=== PATIENT | male | born 1940 | race African-American/Black ===

== ENCOUNTER 2016-11-18 09:31 | Emergency (ER) | payer MEDICARE ==
[~2016-11-18] VITALS: Ht 175.3 cm; Wt 95.3 kg
[~2016-11-18 09:31] MED LIST: CLON0.1T PO; LATA2.5D2 OP; PRED5TAB PO; TERA5CAP3 PO
--- NOTE | 2016-11-18 10:40 | PHYS DOC ---
Past Medical History Past Medical History: Bronchitis, Hypertension, Other Additional Past Medical Histor: prostate cancer hx Past Surgical History: Other Additional Past Surgical Histo: hernia Alcohol Use: None Drug Use: None Adult General Chief Complaint Chief Complaint: SHORTNESS OF BREATH [facility] HPI Patient is a 76 year old male who presents with complaint of shortness of breath. Patient states that he was sent to the emergency department from his primary doctor's office due to problems with worsening shortness of breath with exertion. Patient states that he has had problems over the past 3 days. The patient states that he thinks it is due to a medication that he is taking for his prostate. The patient is a poor historian. The patient states that he had history of prostate cancer but states that it resolved. Patient states however that he is currently taking a medication for his prostate. Patient is unsure if he has had recurrence of his prostate cancer. Patient states that he is currently taking Xtandi. Patient denies any history of heart or lung problems. Patient states since taking this medication he has felt weaker and has been having dyspnea on exertion. Per report, the patient was noted to be at his primary physician's office and was sent to the emergency department due to low blood pressure. Patient's current blood pressure is 100/50. Patient denies any fevers, cough, chills, abdominal pain. Patient states that he has had decreased appetite since taking his medication and has not been eating or drinking well. Patient denies orthopnea or chest pain. Review of Systems Review of Systems Constitutional: Denies fever or chills [] Eyes: Denies change in visual acuity, redness, or eye pain [] HENT: Denies nasal congestion or sore throat [] Respiratory: Denies cough or shortness of breath [] Cardiovascular: No additional information not addressed in HPI [] GI: Denies abdominal pain, nausea, vomiting, bloody stools or diarrhea [] : Denies dysuria or hematuria [] Musculoskeletal: Denies back pain or joint pain [] Integument: Denies rash or skin lesions [] Neurologic: Denies headache, focal weakness or sensory changes [] Endocrine: Denies polyuria or polydipsia [] Current Medications Current Medications Current Medications Medications (Trade) Dose Ordered Sig/Marie Start Time Stop Time Status Last Admin Dose Admin Sodium Chloride (Iv Sodium Chloride 0.9% 1000ml Bag) 1,000 ml @ 1,000 mls/hr Q1H 11/18/16 11:00 11/18/16 11:59 DC 11/18/16 11:13 1,000 MLS/HR Allergies Allergies Allergies Coded Allergies Type Severity Reaction Last Updated Verified No Known Drug Allergies 03/12/16 No Physical Exam Physical Exam Constitutional: Alert, afebrile, no acute distress. [] HENT: Normocephalic, atraumatic, bilateral external ears normal, oropharynx moist, no oral exudates, nose normal. [] Eyes: PERRLA, EOMI, conjunctiva normal, no discharge. [] Neck: Normal range of motion, no tenderness, supple, no stridor. [] Cardiovascular:Heart rate regular rhythm, no murmur [] Lungs & Thorax: Bilateral breath sounds clear to auscultation [] Abdomen: Bowel sounds normal, soft, no tenderness, no masses, no pulsatile masses. [] Skin: Warm, dry, no erythema, no rash. [] Back: No tenderness, no CVA tenderness. [] Extremities: No tenderness, no cyanosis, no clubbing, ROM intact, trace pedal edema bilaterally. [] Neurologic: Alert and oriented X 3, normal motor function, normal sensory function, no focal deficits noted. [] Current Patient Data Vital Signs Vital Signs Date Time Temp Pulse Resp B/P Pulse Ox O2 Delivery O2 Flow Rate FiO2 11/18/16 13:30 74 22 117/66 96 Room Air 11/18/16 10:00 98.4 98.4 Lab Values Laboratory Tests Test 11/18/16 11:08 11/18/16 13:16 White Blood Count 6.9x10^3/uL (4.0-11.0) Red Blood Count 4.16x10^6/uL (4.30-5.70) L Hemoglobin 11.5g/dL (13.0-17.5) L Hematocrit 35.0% (39.0-53.0) L Mean Corpuscular Volume 84fL (79-100) Mean Corpuscular Hemoglobin 28pg (25-35) Mean Corpuscular Hemoglobin Concent 33g/dL (31-37) Red Cell Distribution Width 13.7% (11.5-14.5) Platelet Count 207x10^3/uL (140-400) Neutrophils (%) (Auto) 67% (31-73) Lymphocytes (%) (Auto) 13% (24-48) L Monocytes (%) (Auto) 14% (0-9) H Eosinophils (%) (Auto) 5% (0-3) H Basophils (%) (Auto) 1% (0-3) Neutrophils # (Auto) 4.7x10^3uL (1.8-7.7) Lymphocytes # (Auto) 0.9x10^3/uL (1.0-4.8) L Monocytes # (Auto) 1.0x10^3/uL (0.0-1.1) Eosinophils # (Auto) 0.4x10^3/uL (0.0-0.7) Basophils # (Auto) 0.0x10^3/uL (0.0-0.2) Sodium Level 141mmol/L (136-145) Potassium Level 4.0mmol/L (3.5-5.1) Chloride Level 107mmol/L (98-107) Carbon Dioxide Level 26mmol/L (21-32) Anion Gap 8 (6-14) Blood Urea Nitrogen 24mg/dL (8-26) Creatinine 1.8mg/dL (0.7-1.3) H Estimated GFR (Cockcroft-Gault) 44.5 Glucose Level 109mg/dL (70-99) H Calcium Level 7.7mg/dL (8.5-10.1) L Magnesium Level 2.4mg/dL (1.8-2.4) Total Bilirubin 0.5mg/dL (0.2-1.0) Direct Bilirubin 0.1mg/dL (0.0-0.2) Aspartate Amino Transferase (AST) 23U/L (15-37) Alanine Aminotransferase (ALT) 20U/L (16-63) Alkaline Phosphatase 67U/L (46-116) Creatine Kinase 261U/L (39-308) Creatine Kinase MB (Mass) 1.2ng/mL (0.0-3.6) Creatine Kinase MB Relative Index 0.5% (0-4) Troponin I Quantitative < 0.017ng/mL (0.000-0.055) GZ-Zcv-F-Type Natriuretic Peptide 71pg/mL (0-449) Total Protein 6.5g/dL (6.4-8.2) Albumin 2.6g/dL (3.4-5.0) L Urine Collection Type Unknown Urine Color Yellow Urine Clarity Clear Urine pH 6.0 Urine Specific [place] 1.015 Urine Protein Negativemg/dL (NEG-TRACE) Urine Glucose (UA) Negativemg/dL (NEG) Urine Ketones (Stick) Tracemg/dL (NEG) Urine Blood Trace (NEG) Urine Nitrite Negative (NEG) Urine Bilirubin Negative (NEG) Urine Urobilinogen Dipstick 0.2mg/dL (0.2 mg/dL) Urine Leukocyte Esterase Moderate (NEG) Urine RBC Rare/HPF (0-2) Urine WBC 11-20/HPF (0-4) Urine Squamous Epithelial Cells Occ/LPF Urine Bacteria Few/HPF (0-FEW) Urine Hyaline Casts Occasional/HPF Laboratory Tests 11/18/16 11:08 Laboratory Tests 11/18/16 11:08 EKG EKG Interpreted by me: Heart rate 80, sinus rhythm, normal intervals, left axis deviation, no acute ST/T-wave abnormalities present [] Radiology/Procedures Radiology/Procedures [facility] [address] [place] [address] IMAGING REPORT Signed PATIENT: LEONA BALTAZAR ACCOUNT: [id number] : 1940 LOCATION: ER AGE: 76 SEX: M EXAM STATUS: REG ER ORD. PHYSICIAN: KOSTA TY MD REASON: shortness of breath PROCEDURE: PORTABLE CHEST 1V Indication: Shortness of breath. Time of exam 10:51 AM Correlation is made with prior chest from 08/27/2016. The heart size is stable. The lungs appear to be clear. There is slight blunting of the costophrenic angles. Minimal pleural fluid cannot be entirely excluded. There is no pneumothorax. Impression: Questionable minimal pleural fluid. No infiltrate is detected. DICTATED and SIGNED BY: JANET WILLAMS MD DATE: 11/18/16 1100 CC: KOSTA TY MD; NON,STAFF ~ [] Course & Med Decision Making Course & Med Decision Making Pertinent Labs and Imaging studies reviewed. (See chart for details) Patient was given IV fluids in the emergency department. The patient states he feels better at this time. The patient is likely experiencing dehydration secondary to poor oral intake from his chemotherapy medication. The patient was prescribed Zofran and recommended to increase fluid intake. Advised follow-up in 3 days with primary doctor and return to emergency department for any worsening symptoms. Patient voiced understanding and in agreement with treatment plan. Dragon Disclaimer Dragon Disclaimer This electronic medical record was generated, in whole or in part, using a voice recognition dictation system. Departure Departure Impression: Primary Impression: Dehydration Additional Impression: Prostate cancer Disposition: HOME, SELF-CARE Condition: IMPROVED Referrals: UNKNOWN PCP NAME (PCP) Patient Instructions: Dehydration, Adult Additional Instructions: Your symptoms appear to be due to poor eating and drinking causing dehydration. This is likely due to the your prostate medication and it is expected that this will improve over the next few days. It is recommended that you follow-up with your primary doctor in the next 3-4 days. You have been prescribed Zofran which will help with nausea and hopefully help improve your appetite. Return to the emergency department for any worsening symptoms. Scripts Ondansetron (Zofran Odt)4 Mg Tab.rapdis4 Mg PO Q8HRS PRN NAUSEA/VOMITING #20 TAB Prov:KOSTA TY MD 11/18/16 Problem Qualifiers KOSTA TY MD Nov 18, 2016 10:40
--- NOTE | 2016-11-18 10:45 | EKG ---
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
[2016-11-18] MEDS ORDERED: IV NORMAL SALINE 1000ML BAG 1,000 ML IV SCH (11:00)
--- NOTE | 2016-11-18 11:04 | RAD ---
Indication: Shortness of breath. Time of exam 10:51 AM Correlation is made with prior chest from 08/27/2016. The heart size is stable. The lungs appear to be clear. There is slight blunting of the costophrenic angles. Minimal pleural fluid cannot be entirely excluded. There is no pneumothorax. Impression: Questionable minimal pleural fluid. No infiltrate is detected.
[2016-11-18 11:29] LABS: BASO % 1 % (0-3); EOS % 5 % (0-3); HEMOGLOBIN 11.5 g/dL (13.0-17.5); LYMPH # 0.9 x10^3/uL (1.0-4.8); LYMPH % 13 % (24-48); MEAN CORPUSCULAR HEMOGLOBIN 28 pg (25-35); MEAN CORPUSCULAR HGB CONC 33 g/dL (31-37); MEAN CORPUSCULAR VOLUME 84 fL (79-100); MONO % 14 % (0-9); NEUT % 67 % (31-73); PLATELET COUNT 207 x10^3/uL (140-400); RED BLOOD COUNT 4.16 x10^6/uL (4.30-5.70); RED CELL DISTRIBUTION WIDTH 13.7 % (11.5-14.5); WHITE BLOOD COUNT 6.9 x10^3/uL (4.0-11.0)
[2016-11-18 11:42] LABS: CALCIUM 7.7 mg/dL (8.5-10.1); CREATININE 1.8 mg/dL (0.7-1.3); GFR 44.5
[2016-11-18 11:47] LABS: ALBUMIN 2.6 g/dL (3.4-5.0); DIRECT BILIRUBIN 0.1 mg/dL (0.0-0.2); MAGNESIUM 2.4 mg/dL (1.8-2.4); TOTAL BILIRUBIN 0.5 mg/dL (0.2-1.0); TOTAL PROTEIN 6.5 g/dL (6.4-8.2)
[2016-11-18 11:54] LABS: CKMB INDEX 0.5 % (0-4); CKMB MASS 1.2 ng/mL (0.0-3.6)
[2016-11-18 13:27] LABS: BILIRUBIN,URINE NEGATIVE (NEG); GLUCOSE,URINE NEGATIVE (NEG); NITRITE,URINE NEGATIVE (NEG); UROBILINOGEN,URINE 0.2 mg/dL (0.2 mg/dL)
[2016-11-18 13:30] VITALS: BP 117/66
[2016-11-18] MEDS ORDERED: ONDA4TAB10 PO (13:31)
[2016-11-18 13:49] LABS: BACTERIA,URINE FEW /HPF (0-FEW); PROTEIN,URINE NEGATIVE (NEG-TRACE); RBC,URINE RARE /HPF (0-2); SQUAMOUS EPITHELIAL CELL,UR OCC /LPF
== END 2016-11-18 13:57 | disposition home or self-care (01) ==
LOC: ER 09:31
DX: C61 Malignant neoplasm of prostate (principal); E86.0 Dehydration; R06.02 Shortness of breath; I10 Essential (primary) hypertension; Z98.890 Other specified postprocedural states
CPT/HCPCS: 36415; 71010; 80048; 80076; 81001; 82553; 83735; 83880; 84484; 85027; 87086; 93005; 96360; 96361; 99285; J7030

== ENCOUNTER 2016-11-21 04:26 | Emergency (ER) | payer MEDICARE ==
[~2016-11-21] VITALS: Ht 175.3 cm; Wt 95.3 kg
[~2016-11-21 04:26] MED LIST changes: +ONDA4TAB10 PO
[2016-11-21] MEDS ORDERED: IV NORMAL SALINE 500ML BAG 500 ML IV ONE (04:30)
[2016-11-21 04:32] VITALS: BP 133/64
[2016-11-21 05:10] LABS: BASO % 1 % (0-3); EOS % 8 % (0-3); HEMATOCRIT 35.8 % (39.0-53.0); HEMOGLOBIN 11.5 g/dL (13.0-17.5); LYMPH # 1.1 x10^3/uL (1.0-4.8); LYMPH % 20 % (24-48); MEAN CORPUSCULAR HEMOGLOBIN 28 pg (25-35); MEAN CORPUSCULAR HGB CONC 32 g/dL (31-37); MEAN CORPUSCULAR VOLUME 86 fL (79-100); MONO % 15 % (0-9); NEUT % 57 % (31-73); PLATELET COUNT 230 x10^3/uL (140-400); RED BLOOD COUNT 4.17 x10^6/uL (4.30-5.70); RED CELL DISTRIBUTION WIDTH 13.7 % (11.5-14.5); WHITE BLOOD COUNT 5.6 x10^3/uL (4.0-11.0)
[2016-11-21 05:26] LABS: CALCIUM 8.4 mg/dL (8.5-10.1); CREATININE 1.4 mg/dL (0.7-1.3); GFR 59.5; POTASSIUM 3.9 mmol/L (3.5-5.1)
[2016-11-21 05:28] LABS: OBC FLU VALID
[2016-11-21 05:32] LABS: ALBUMIN 2.6 g/dL (3.4-5.0); ALBUMIN/GLOBULIN RATIO 0.7 (1.0-1.7); TOTAL BILIRUBIN 0.4 mg/dL (0.2-1.0); TOTAL PROTEIN 6.5 g/dL (6.4-8.2)
--- NOTE | 2016-11-21 05:40 | PHYS DOC ---
Past Medical History Past Medical History: Bronchitis, Cancer, Hypertension, Other Additional Past Medical Histor: prostate cancer hx Past Surgical History: Other Additional Past Surgical Histo: hernia Alcohol Use: None Drug Use: None Adult General Chief Complaint Chief Complaint: WEAKNESS/GENERALIZED HPI HPI 76-year-old male presents to the emergency department stating that he feels tired. He seems to be more tired than usual lately. He denies any chest pain. He denies any shortness of breath, dyspnea on exertion, cough or congestion. He denies any fever chills sweats nausea vomiting or diarrhea. He states he did not have any abnormal vital signs at home but he wanted to come here to have his vital signs checked. [] Review of Systems Review of Systems Constitutional: Denies fever or chills [] Eyes: Denies change in visual acuity, redness, or eye pain [] HENT: Denies nasal congestion or sore throat [] Respiratory: Denies cough or shortness of breath [] Cardiovascular: No additional information not addressed in HPI [] GI: Denies abdominal pain, nausea, vomiting, bloody stools or diarrhea [] : Denies dysuria or hematuria [] Musculoskeletal: Denies back pain or joint pain [] Integument: Denies rash or skin lesions [] Neurologic: Denies headache, focal weakness or sensory changes [] Endocrine: Denies polyuria or polydipsia [] Current Medications Current Medications Current Medications Medications (Trade) Dose Ordered Sig/Marie Start Time Stop Time Status Last Admin Dose Admin Sodium Chloride (Iv Sodium Chloride 0.9% 500ml Bag) 500 ml @ 0 mls/hr 1X ONCE 11/21/16 04:30 11/21/16 04:33 DC 11/21/16 05:23 500 MLS/HR Allergies Allergies Allergies Coded Allergies Type Severity Reaction Last Updated Verified No Known Drug Allergies 03/12/16 No Physical Exam Physical Exam Constitutional: Well developed, well nourished, no acute distress, non-toxic appearance. [] HENT: Normocephalic, atraumatic, bilateral external ears normal, oropharynx moist, no oral exudates, nose normal. [] Eyes: PERRLA, EOMI, conjunctiva normal, no discharge. [] Neck: Normal range of motion, no tenderness, supple, no stridor. [] Cardiovascular:Heart rate regular rhythm, no murmur [] Lungs & Thorax: Bilateral breath sounds clear to auscultation [] Abdomen: Bowel sounds normal, soft, no tenderness, no masses, no pulsatile masses. [] Skin: Warm, dry, no erythema, no rash. [] Back: No tenderness, no CVA tenderness. [] Extremities: No tenderness, no cyanosis, no clubbing, ROM intact, no edema. [] Neurologic: Alert and oriented X 3, normal motor function, normal sensory function, no focal deficits noted. [] Psychologic: Affect normal, judgement normal, mood normal. [] Current Patient Data Vital Signs Vital Signs Date Time Temp Pulse Resp B/P Pulse Ox O2 Delivery O2 Flow Rate FiO2 11/21/16 04:32 99.1 80 14 133/64 96 Room Air 99.1 Lab Values Laboratory Tests Test 11/21/16 04:41 White Blood Count 5.6x10^3/uL (4.0-11.0) Red Blood Count 4.17x10^6/uL (4.30-5.70) L Hemoglobin 11.5g/dL (13.0-17.5) L Hematocrit 35.8% (39.0-53.0) L Mean Corpuscular Volume 86fL (79-100) Mean Corpuscular Hemoglobin 28pg (25-35) Mean Corpuscular Hemoglobin Concent 32g/dL (31-37) Red Cell Distribution Width 13.7% (11.5-14.5) Platelet Count 230x10^3/uL (140-400) Neutrophils (%) (Auto) 57% (31-73) Lymphocytes (%) (Auto) 20% (24-48) L Monocytes (%) (Auto) 15% (0-9) H Eosinophils (%) (Auto) 8% (0-3) H Basophils (%) (Auto) 1% (0-3) Neutrophils # (Auto) 3.2x10^3uL (1.8-7.7) Lymphocytes # (Auto) 1.1x10^3/uL (1.0-4.8) Monocytes # (Auto) 0.8x10^3/uL (0.0-1.1) Eosinophils # (Auto) 0.5x10^3/uL (0.0-0.7) Basophils # (Auto) 0.0x10^3/uL (0.0-0.2) Sodium Level 143mmol/L (136-145) Potassium Level 3.9mmol/L (3.5-5.1) Chloride Level 107mmol/L (98-107) Carbon Dioxide Level 24mmol/L (21-32) Anion Gap 12 (6-14) Blood Urea Nitrogen 11mg/dL (8-26) Creatinine 1.4mg/dL (0.7-1.3) H Estimated GFR (Cockcroft-Gault) 59.5 BUN/Creatinine Ratio 8 (6-20) Glucose Level 111mg/dL (70-99) H Calcium Level 8.4mg/dL (8.5-10.1) L Total Bilirubin 0.4mg/dL (0.2-1.0) Aspartate Amino Transferase (AST) 24U/L (15-37) Alanine Aminotransferase (ALT) 20U/L (16-63) Alkaline Phosphatase 67U/L (46-116) Troponin I Quantitative < 0.017ng/mL (0.000-0.055) Total Protein 6.5g/dL (6.4-8.2) Albumin 2.6g/dL (3.4-5.0) L Albumin/Globulin Ratio 0.7 (1.0-1.7) L Influenza Type A Antigen Negative (NEGATIVE) Influenza Type B Antigen Negative (NEGATIVE) Laboratory Tests 11/21/16 04:41 Laboratory Tests 11/21/16 04:41 EKG EKG [EKG: Normal sinus rhythm rate of [address]-T changes] Radiology/Procedures Radiology/Procedures [] Impressions: Chest x-ray: Negative exam as interpreted by me Course & Med Decision Making Course & Med Decision Making Pertinent Labs and Imaging studies reviewed. (See chart for details) [ED course: Evaluation reveals a healthy fire ant 76-year-old male in no significant distress.] Dragon Disclaimer Dragon Disclaimer This electronic medical record was generated, in whole or in part, using a voice recognition dictation system. Departure Departure Impression: Primary Impression: Generalized weakness Disposition: 01 HOME, SELF-CARE Condition: STABLE Referrals: NO PCP (PCP) Patient Instructions: Insomnia, Weakness Additional Instructions: Follow with your family doctor this week for recheck. Return to the MRSA from with any new or concerning symptoms JANETTE PARMAR DO Nov 21, 2016 05:40
--- NOTE | 2016-11-21 06:40 | EKG ---
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
--- NOTE | 2016-11-21 07:14 | RAD ---
Portable chest, 11/21/2016: History: Weakness Comparison is made to a study from 11/18/2016. The patient positioning is lordotic. The heart size and pulmonary vascularity are normal. There is minimal bibasilar atelectasis and/or scarring. The upper lung barrera are clear. There is no evidence of pleural fluid. Moderate spurring is present in the spine. IMPRESSION: Minimal bibasilar atelectasis and/or scarring.
== END 2016-11-21 06:08 | disposition home or self-care (01) ==
LOC: ER 04:26
DX: R53.1 Weakness (principal); I10 Essential (primary) hypertension; Z85.46 Personal history of malignant neoplasm of prostate
CPT/HCPCS: 36415; 71010; 80053; 84484; 85027; 87804; 93005; 96360; 99285; J7040

== ENCOUNTER → 2017-02-23 | Outpatient (CLI) | payer MEDICARE ==
--- NOTE | 2017-02-23 14:46 | RAD ---
FDG tumor localization scan, PET/CT, 02/23/2017: History: Restaging prostate cancer Following IV injection of 10.7 mCi of 18 F-FDG, imaging was performed from the skull base to the proximal thighs. The noncontrast CT component was performed for attenuation correction and anatomic localization purposes rather than for primary diagnosis. Comparison is made to a study from 09/22/2016. There are now numerous hypermetabolic low density lesions in the liver. These have increased in size and number since the previous study. The maximum SUV in these lesions is in the 7-8 range. The nodules are confluent centrally in the liver. There is mild hypermetabolic pericaval and periaortic adenopathy. This includes an 18 x 12 mm lymph left periaortic lymph node just superior to the aortic bifurcation which measured 15 x 10 mm on the previous study. It demonstrates a maximum SUV of 6.4. The hypermetabolic adenopathy extends into the left common iliac and internal iliac regions along the left side of the rectum. These densities and also increased slightly in size and demonstrate a greater degree of FDG uptake. No abnormal pulmonary or mediastinal FDG uptake is seen. There are artifacts on the scans through the neck. No hypermetabolic neck lesion is identified. There are foci of mildly increased activity in the lower thoracic and upper lumbar spine. The most prominent of these is at the T9 level. These appear to have progressed slightly since the previous study. Incidental CT findings include the presence of extensive right frontal, ethmoid and maxillary sinus opacities, and mild left maxillary sinus opacities, presumably on an inflammatory basis. There are scattered coronary artery calcifications. Prostate fiducial markers are present. IMPRESSION: 1. Hypermetabolic periaortic, left iliac and left pararectal adenopathy has progressed slightly since the previous study, compatible with metastatic disease. 2. Marked interval increase in size and number of the hypermetabolic hepatic lesions, also compatible with metastatic disease. 3. Presumed thoracic spine metastases appear to have progressed slightly.
== END | disposition home or self-care (01) ==
LOC: PETSC 11:54
PROVIDERS: ATTEND Internal Medicine Hematology & Oncology
DX: C61 Malignant neoplasm of prostate (principal)
CPT/HCPCS: 78815; A9552

== ENCOUNTER → 2017-02-27 | Outpatient (CLI) | payer MEDICARE ==
--- NOTE | 2017-02-27 12:58 | RAD ---
Indication: Prostate carcinoma. The patient was administered 27.4 mCi of technetium 99m MDP intravenously and whole-body imaging was performed after a 3 hour delay. Comparison is made with prior whole body bone scan from 09/21/2016. Normal uptake of activity by the axial and appendicular skeleton is noted. There is uptake by the kidneys with excretion into the urinary bladder. Uptake in the region of the upper pole right kidney is similar to prior exam. Avid uptake in the lower thoracic spine at approximately the T9 level is similar to prior exam and corresponds to previously noted osteoblastic lesion. Vague uptake in the upper lumbar spine is also noted which appears to have been present on prior exam as well. No new focus is identified. Impression: Stable whole body bone scan when compared with prior study from 09/21/2016.
== END | disposition home or self-care (01) ==
LOC: NM 10:41
PROVIDERS: ATTEND Internal Medicine Hematology & Oncology
DX: C61 Malignant neoplasm of prostate (principal)
CPT/HCPCS: 78306; 96374; A9503

== ENCOUNTER 2017-06-13 10:34 | Inpatient (IN) | payer MEDICARE ==
[~2017-06-13] VITALS: Ht 175.3 cm; Wt 83.6 kg
--- NOTE | 2017-06-13 12:23 | PHYS DOC ---
Past Medical History Past Medical History: Bronchitis, Cancer, Hypertension, Renal Disease, Other Additional Past Medical Histor: prostate cancer hx Past Surgical History: Other Additional Past Surgical Histo: hernia, stent placed in kidney Alcohol Use: None Drug Use: None Adult General Chief Complaint Chief Complaint: ABNORMAL LABS [facility] HPI Patient is a 76 year old -[place] male who presents with shortness of breath and decreased appetite over the last several days. He was seen by his primary care physician and was told that he had elevated creatinine he be evaluated. He denies fevers chills. He does feel short of breath is up ambulating otherwise has no other complaints. He denies any chest discomfort. He states he hasn't had an appetite for the last few days. 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 Review of Systems Review of Systems Constitutional: Denies fever or chills [] Eyes: Denies change in visual acuity, redness, or eye pain [] HENT: Denies nasal congestion or sore throat [] Respiratory: Denies cough, positive for dyspnea on exertion. Cardiovascular: No additional information not addressed in HPI [] GI: Denies abdominal pain, nausea, vomiting, bloody stools or diarrhea [] : Denies dysuria or hematuria [] Musculoskeletal: Denies back pain or joint pain [] Integument: Denies rash or skin lesions [] Neurologic: Denies headache, focal weakness or sensory changes [] Endocrine: Denies polyuria or polydipsia [] Current Medications Current Medications Current Medications Medications (Trade) Dose Ordered Sig/Marie Start Time Stop Time Status Last Admin Dose Admin Acetaminophen (Tylenol) 650 mg PRN Q6HRS PRN 06/13/17 14:45 UNV Bisacodyl (Dulcolax Supp) 10 mg PRN DAILY PRN 06/13/17 14:45 UNV Clonidine HCl (Catapres) 0.1 mg BID 06/13/17 21:00 UNV Docusate Sodium (Colace) 100 mg BID 06/13/17 21:00 UNV Heparin Sodium (Porcine) (Heparin Sq) 5,000 unit Q12HR 06/13/17 21:00 UNV Latanoprost (Xalatan) 1 drop HS 06/13/17 21:00 UNV Magnesium Hydroxide (Milk Of Magnesia) 2,400 mg PRN Q12HR PRN 06/13/17 14:45 UNV Morphine Sulfate 1 mg PRN Q1HR PRN 06/13/17 14:45 UNV Ondansetron HCl (Zofran Odt) 4 mg Q8HRS PRN 06/13/17 14:45 UNV Ondansetron HCl (Zofran) 4 mg PRN Q6HRS PRN 06/13/17 14:45 UNV Oxycodone HCl (Roxicodone) 5 mg PRN Q3HRS PRN 06/13/17 14:45 UNV Prednisone (Prednisone) 5 mg BID 06/13/17 21:00 UNV Prochlorperazine (Compazine) 25 mg PRN Q12HR PRN 06/13/17 14:45 UNV Prochlorperazine Edisylate (Compazine) 10 mg PRN Q6HRS PRN 06/13/17 14:45 UNV Sodium Chloride 1,000 ml @ 100 mls/hr CONT 06/13/17 14:45 UNV Terazosin HCl (Hytrin) 5 mg HS 06/13/17 21:00 UNV Allergies Allergies Allergies Coded Allergies Type Severity Reaction Last Updated Verified No Known Drug Allergies 03/12/16 No Physical Exam Physical Exam Constitutional: Well developed, well nourished, no acute distress, non-toxic appearance. [] HENT: Normocephalic, atraumatic, bilateral external ears normal, oropharynx moist, no oral exudates, nose normal. [] Eyes: PERRLA, EOMI, conjunctiva normal, no discharge. [] Neck: Normal range of motion, no tenderness, supple, no stridor. [] Cardiovascular:Heart rate regular rhythm, no murmur [] Lungs & Thorax: Bilateral breath sounds clear to auscultation [] Abdomen: Bowel sounds normal, soft, no tenderness, no masses, no pulsatile masses. [] Skin: Warm, dry, no erythema, no rash. [] Back: No tenderness, no CVA tenderness. [] Extremities: No tenderness, no cyanosis, no clubbing, ROM intact, no edema. [] Neurologic: Alert and oriented X 3, normal motor function, normal sensory function, no focal deficits noted. [] Psychologic: Affect normal, judgement normal, mood normal. [] Current Patient Data Vital Signs Vital Signs Date Time Temp Pulse Resp B/P (MAP) Pulse Ox O2 Delivery O2 Flow Rate FiO2 06/13/17 14:14 84 20 105/62 (76) 99 Room Air 06/13/17 10:48 99.2 99.2 Lab Values Laboratory Tests Test 06/13/17 11:00 06/13/17 12:35 White Blood Count 4.6 x10^3/uL (4.0-11.0) Red Blood Count 3.65 x10^6/uL (4.30-5.70) L Hemoglobin 10.5 g/dL (13.0-17.5) L Hematocrit 31.3 % (39.0-53.0) L Mean Corpuscular Volume 86 fL (79-100) Mean Corpuscular Hemoglobin 29 pg (25-35) Mean Corpuscular Hemoglobin Concent 34 g/dL (31-37) Red Cell Distribution Width 15.1 % (11.5-14.5) H Platelet Count 230 x10^3/uL (140-400) Neutrophils (%) (Auto) 55 % (31-73) Lymphocytes (%) (Auto) 22 % (24-48) L Monocytes (%) (Auto) 16 % (0-9) H Eosinophils (%) (Auto) 7 % (0-3) H Basophils (%) (Auto) 1 % (0-3) Neutrophils # (Auto) 2.5 x10^3uL (1.8-7.7) Lymphocytes # (Auto) 1.0 x10^3/uL (1.0-4.8) Monocytes # (Auto) 0.7 x10^3/uL (0.0-1.1) Eosinophils # (Auto) 0.3 x10^3/uL (0.0-0.7) Basophils # (Auto) 0.1 x10^3/uL (0.0-0.2) Prothrombin Time 13.5 SEC (11.7-14.0) Prothrombin Time INR 1.1 (0.8-1.1) Sodium Level 140 mmol/L (136-145) Potassium Level 4.6 mmol/L (3.5-5.1) Chloride Level 104 mmol/L (98-107) Carbon Dioxide Level 21 mmol/L (21-32) Anion Gap 15 (6-14) H Blood Urea Nitrogen 47 mg/dL (8-26) H Creatinine 3.8 mg/dL (0.7-1.3) H Estimated GFR (Cockcroft-Gault) 18.8 Glucose Level 142 mg/dL (70-99) H Calcium Level 9.1 mg/dL (8.5-10.1) Magnesium Level 2.1 mg/dL (1.8-2.4) Total Bilirubin 4.4 mg/dL (0.2-1.0) H Direct Bilirubin 3.6 mg/dL (0.0-0.2) H Aspartate Amino Transferase (AST) 144 U/L (15-37) H Alanine Aminotransferase (ALT) 85 U/L (16-63) H Alkaline Phosphatase 492 U/L (46-116) H Creatine Kinase 143 U/L (39-308) Creatine Kinase MB (Mass) 0.6 ng/mL (0.0-3.6) Creatine Kinase MB Relative Index 0.4 % (0-4) Troponin I Quantitative < 0.017 ng/mL (0.000-0.055) ZW-Ued-T-Type Natriuretic Peptide 931 pg/mL (0-449) H Total Protein 6.0 g/dL (6.4-8.2) L Albumin 2.5 g/dL (3.4-5.0) L Lipase 277 U/L (73-393) Urine Collection Type Unknown Urine Color Ayleen Urine Clarity Cloudy Urine pH 5.5 Urine Specific [place] 1.015 Urine Protein 30 mg/dL (NEG-TRACE) Urine Glucose (UA) Negative mg/dL (NEG) Urine Ketones (Stick) Negative mg/dL (NEG) Urine Blood Large (NEG) Urine Nitrite Negative (NEG) Urine Bilirubin Small (NEG) Urine Urobilinogen Dipstick 1.0 mg/dL (0.2 mg/dL) Urine Leukocyte Esterase Large (NEG) Urine RBC 20-40 /HPF (0-2) Urine WBC 1-4 /HPF (0-4) Urine Squamous Epithelial Cells Occ /LPF Urine Amorphous Sediment Present /HPF Urine Bacteria Few /HPF (0-FEW) Urine Opiates Screen Pos (NEG) Urine Methadone Screen Neg (NEG) Urine Barbiturates Neg (NEG) Urine Phencyclidine Screen Neg (NEG) Urine Amphetamine/Methamphetamine Neg (NEG) Urine Benzodiazepines Screen Neg (NEG) Urine Cocaine Screen Neg (NEG) Urine Cannabinoids Screen Neg (NEG) Urine Ethyl Alcohol Neg (NEG) Laboratory Tests 06/13/17 11:00 Laboratory Tests 06/13/17 11:00 EKG EKG EKG shows sinus rhythm with rate of [address] elevations, T-wave inversion noted in leads 3, left axis deviation, QTC 407 ms, as interpreted by me. Radiology/Procedures Radiology/Procedures [facility] [address] [place] [address] IMAGING REPORT Signed PATIENT: LEONA BALTAZAR ACCOUNT: [id number] : 1940 LOCATION: ER AGE: 76 SEX: M EXAM STATUS: REG ER ORD. PHYSICIAN: JACKIE LOCO MD REASON: soa PROCEDURE: PORTABLE CHEST 1V Chest x-ray Indication: Shortness of breath for while. Technique: Portable AP upright chest plain film Comparison: Previous study from 11/21/2016 Findings: Heart is normal in size. Mild right basilar atelectasis. Otherwise, lungs are clear. No pneumothorax or pleural effusion. Visualized bony thorax within normal limits. Impression: No acute cardiopulmonary process. Mild right basilar atelectasis. DICTATED and SIGNED BY: JOHNATHAN FERNANDEZ DO DATE: 06/13/17 1254 CC: JACKIE LOCO MD; UNKNOWN PCP NAME ~ Impressions: Dyspnea on exertion Acute on chronic renal failure Course & Med Decision Making Course & Med Decision Making Pertinent Labs and Imaging studies reviewed. (See chart for details) Patient being admitted for acute on chronic renal failure. I don't notice any acute abnormality's's time. We will admit to the hospitalist. He is in stable and agreeable condition. Dragon Disclaimer Dragon Disclaimer This electronic medical record was generated, in whole or in part, using a voice recognition dictation system. Departure Departure Referrals: UNKNOWN PCP NAME (PCP) JACKIE LOCO MD Jun 13, 2017 12:23
[2017-06-13 12:38] LABS: BASO # 0.1 x10^3/uL (0.0-0.2); BASO % 1 % (0-3); EOS % 7 % (0-3); HEMATOCRIT 31.3 % (39.0-53.0); HEMOGLOBIN 10.5 g/dL (13.0-17.5); LYMPH % 22 % (24-48); MEAN CORPUSCULAR HEMOGLOBIN 29 pg (25-35); MEAN CORPUSCULAR HGB CONC 34 g/dL (31-37); MEAN CORPUSCULAR VOLUME 86 fL (79-100); MONO % 16 % (0-9); NEUT % 55 % (31-73); PLATELET COUNT 230 x10^3/uL (140-400); RED BLOOD COUNT 3.65 x10^6/uL (4.30-5.70); RED CELL DISTRIBUTION WIDTH 15.1 % (11.5-14.5); WHITE BLOOD COUNT 4.6 x10^3/uL (4.0-11.0)
--- NOTE | 2017-06-13 12:48 | EKG ---
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
[2017-06-13 12:56] LABS: CALCIUM 9.1 mg/dL (8.5-10.1); CREATININE 3.8 mg/dL (0.7-1.3); GFR 18.8; INR 1.1 (0.8-1.1); POTASSIUM 4.6 mmol/L (3.5-5.1); PROTHROMBIN TIME PATIENT 13.5 SEC (11.7-14.0)
[2017-06-13 12:58] LABS: BARBITURATES NEG (NEG); BENZODIAZEPINES NEG (NEG); CANNABINOIDS NEG (NEG); COCAINE NEG (NEG); METHADONE NEG (NEG); OPIATES POS (NEG); PHENCYCLIDINE NEG (NEG)
--- NOTE | 2017-06-13 12:59 | RAD ---
Chest x-ray Indication: Shortness of breath for while. Technique: Portable AP upright chest plain film Comparison: Previous study from 11/21/2016 Findings: Heart is normal in size. Mild right basilar atelectasis. Otherwise, lungs are clear. No pneumothorax or pleural effusion. Visualized bony thorax within normal limits. Impression: No acute cardiopulmonary process. Mild right basilar atelectasis.
[2017-06-13 13:08] LABS: ALBUMIN 2.5 g/dL (3.4-5.0); DIRECT BILIRUBIN 3.6 mg/dL (0.0-0.2); MAGNESIUM 2.1 mg/dL (1.8-2.4); TOTAL BILIRUBIN 4.4 mg/dL (0.2-1.0)
[2017-06-13 13:09] LABS: BILIRUBIN,URINE SMALL (NEG); GLUCOSE,URINE NEGATIVE (NEG); NITRITE,URINE NEGATIVE (NEG); PH,URINE 5.5; PROTEIN,URINE 30 mg/dL (NEG-TRACE)
[2017-06-13 13:11] LABS: CKMB MASS 0.6 ng/mL (0.0-3.6)
[2017-06-13 13:28] LABS: RBC,URINE 20-40 /HPF (0-2)
[2017-06-13 13:29] LABS: BACTERIA,URINE FEW /HPF (0-FEW); SQUAMOUS EPITHELIAL CELL,UR OCC /LPF
[2017-06-13] MEDS ORDERED: oxyCODONE IR 5 MG TABLET PO PRN (14:45)
[2017-06-13] MEDS ORDERED: PROCHLORPERAZINE 25 MG SUPP.RECT. PR PRN (14:45)
[2017-06-13] MEDS ORDERED: MORPHINE SULFATE 4 MG/ML DISP.SYRIN. IV PRN (14:45)
[2017-06-13] MEDS: IV NORMAL SALINE 1000ML BAG 1,000 ML IV SCH ×2 (14:45→23:56)
[2017-06-13] MEDS ORDERED: BISACODYL 10 MG SUPP.RECT. PR PRN (14:45)
[2017-06-13] MEDS ORDERED: ONDANSETRON ODT 4 MG TAB.RAPDIS. PO PRN (14:45)
[2017-06-13] MEDS ORDERED: MAGNESIUM HYDROXIDE 2,400 MG/30 ML ORAL.SUSP. PO PRN (14:45)
[2017-06-13] MEDS ORDERED: PROCHLORPERAZINE 10 MG/2 ML VIAL. IV PRN (14:45)
[2017-06-13] MEDS ORDERED: ACETAMINOPHEN 325 MG TABLET. PO PRN (14:45)
--- NOTE | 2017-06-13 14:46 | PDOC1 ---
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 but none bothersome, Creat 3./8 a jump from 1.7 on last records. Juan Manuel had a kidney stent placed 2 mos ago at , where they performed US,. Minimal UO. HX prostate CA , completed around 40 cycles radiation tx (mets to bone- in past documentations here). REst of labs like K and bicarb ok,. SBP 100s, on clondine at home, and 4 other meds, none are nephrotoxic, NO recent NSAIDs use Past Medical History Cardiovascular: HTN Pulmonary: No pertinent hx GI: No pertinent hx Heme/Onc: No pertinent hx Hepatobiliary: No pertinent hx Endocrine: No pertinent hx Past Surgical History Past Surgical History: Other (kidnet stent placement, left (2 mos ago)) Family History Family History: Hypertension Social History Smoke: No ALCOHOL: none Drugs: None Current Medications Current Medications Active Scripts Active Zofran Odt (Ondansetron) 4 Mg Tab.rapdis 4 Mg PO Q8HRS PRN Reported Xalatan (Latanoprost) 2.5 Ml Drops 1 Drop OP HS Clonidine Hcl 0.1 Mg Tablet 0.1 Mg PO BID Prednisone 5 Mg Tablet 5 Mg PO BID Terazosin Hcl 5 Mg Capsule 5 Mg PO HS Allergies Allergies: Coded Allergies: No Known Drug Allergies (Unverified , 03/12/16) ROS Review of System as per HPI, otherwise he denies (dec UO is positive though) Physical Exam General: Alert, Oriented X3, Cooperative, No acute distress HEENT: Atraumatic, PERRLA, EOMI, Mucous membr. moist/pink Lungs: Clear to auscultation, Normal air movement Heart: S1S2, RRR, no thrills, no rubs, no gallops, no murmurs Cardiovascular: S1, S2 Abdomen: Normal bowel sounds, Soft, No tenderness, No hepatosplenomegaly, No masses Male Genitals Exam: normal genitalia, normal prostate Rectal Exam: not examined PELVIC: Nml ext genitalia Extremities: No clubbing, No cyanosis, No edema, Normal pulses, No tenderness/ swelling Skin: No rashes, No breakdown, No significant lesion Neuro: Normal gait, Normal speech, Strength at 5/5 X4 ext, Normal tone, Sensation intact, Cranial nerves 3-12 NL, Reflexes 2+ Psych/Mental Status: Mental status NL, Mood NL Vitals Vitals Vital Signs Date Time Temp Pulse Resp B/P (MAP) Pulse Ox O2 Delivery O2 Flow Rate FiO2 06/13/17 14:14 84 20 105/62 (76) 99 Room Air 06/13/17 10:48 99.2 99.2 Labs Labs Laboratory Tests Test 06/13/17 11:00 06/13/17 12:35 White Blood Count 4.6 x10^3/uL (4.0-11.0) Red Blood Count 3.65 x10^6/uL (4.30-5.70) Hemoglobin 10.5 g/dL (13.0-17.5) Hematocrit 31.3 % (39.0-53.0) Mean Corpuscular Volume 86 fL (79-100) Mean Corpuscular Hemoglobin 29 pg (25-35) Mean Corpuscular Hemoglobin Concent 34 g/dL (31-37) Red Cell Distribution Width 15.1 % (11.5-14.5) Platelet Count 230 x10^3/uL (140-400) Neutrophils (%) (Auto) 55 % (31-73) Lymphocytes (%) (Auto) 22 % (24-48) Monocytes (%) (Auto) 16 % (0-9) Eosinophils (%) (Auto) 7 % (0-3) Basophils (%) (Auto) 1 % (0-3) Neutrophils # (Auto) 2.5 x10^3uL (1.8-7.7) Lymphocytes # (Auto) 1.0 x10^3/uL (1.0-4.8) Monocytes # (Auto) 0.7 x10^3/uL (0.0-1.1) Eosinophils # (Auto) 0.3 x10^3/uL (0.0-0.7) Basophils # (Auto) 0.1 x10^3/uL (0.0-0.2) Prothrombin Time 13.5 SEC (11.7-14.0) Prothromb Time International Ratio 1.1 (0.8-1.1) Sodium Level 140 mmol/L (136-145) Potassium Level 4.6 mmol/L (3.5-5.1) Chloride Level 104 mmol/L (98-107) Carbon Dioxide Level 21 mmol/L (21-32) Anion Gap 15 (6-14) Blood Urea Nitrogen 47 mg/dL (8-26) Creatinine 3.8 mg/dL (0.7-1.3) Estimated GFR (Cockcroft-Gault) 18.8 Glucose Level 142 mg/dL (70-99) Calcium Level 9.1 mg/dL (8.5-10.1) Magnesium Level 2.1 mg/dL (1.8-2.4) Total Bilirubin 4.4 mg/dL (0.2-1.0) Direct Bilirubin 3.6 mg/dL (0.0-0.2) Aspartate Amino Transf (AST/SGOT) 144 U/L (15-37) Alanine Aminotransferase (ALT/SGPT) 85 U/L (16-63) Alkaline Phosphatase 492 U/L (46-116) Creatine Kinase 143 U/L (39-308) Creatine Kinase MB (Mass) 0.6 ng/mL (0.0-3.6) Creatine Kinase MB Relative Index 0.4 % (0-4) Troponin I Quantitative < 0.017 ng/mL (0.000-0.055) GF-Pbs-A-Type Natriuretic Peptide 931 pg/mL (0-449) Total Protein 6.0 g/dL (6.4-8.2) Albumin 2.5 g/dL (3.4-5.0) Lipase 277 U/L (73-393) Urine Collection Type Unknown Urine Color [place]yleen Urine Clarity Cloudy Urine pH 5.5 Urine Specific [place] 1.015 Urine Protein 30 mg/dL (NEG-TRACE) Urine Glucose (UA) Negative mg/dL (NEG) Urine Ketones (Stick) Negative mg/dL (NEG) Urine Blood Large (NEG) Urine Nitrite Negative (NEG) Urine Bilirubin Small (NEG) Urine Urobilinogen Dipstick 1.0 mg/dL (0.2 mg/dL) Urine Leukocyte Esterase Large (NEG) Urine RBC 20-40 /HPF (0-2) Urine WBC 1-4 /HPF (0-4) Urine Squamous Epithelial Cells Occ /LPF Urine Amorphous Sediment Present /HPF Urine Bacteria Few /HPF (0-FEW) Urine Opiates Screen Pos (NEG) Urine Methadone Screen Neg (NEG) Urine Barbiturates Neg (NEG) Urine Phencyclidine Screen Neg (NEG) Urine Amphetamine/Methamphetamine Neg (NEG) Urine Benzodiazepines Screen Neg (NEG) Urine Cocaine Screen Neg (NEG) Urine Cannabinoids Screen Neg (NEG) Urine Ethyl Alcohol Neg (NEG) Laboratory Tests Test 06/13/17 11:00 06/13/17 12:35 White Blood Count 4.6 x10^3/uL (4.0-11.0) Red Blood Count 3.65 x10^6/uL (4.30-5.70) Hemoglobin 10.5 g/dL (13.0-17.5) Hematocrit 31.3 % (39.0-53.0) Mean Corpuscular Volume 86 fL (79-100) Mean Corpuscular Hemoglobin 29 pg (25-35) Mean Corpuscular Hemoglobin Concent 34 g/dL (31-37) Red Cell Distribution Width 15.1 % (11.5-14.5) Platelet Count 230 x10^3/uL (140-400) Neutrophils (%) (Auto) 55 % (31-73) Lymphocytes (%) (Auto) 22 % (24-48) Monocytes (%) (Auto) 16 % (0-9) Eosinophils (%) (Auto) 7 % (0-3) Basophils (%) (Auto) 1 % (0-3) Neutrophils # (Auto) 2.5 x10^3uL (1.8-7.7) Lymphocytes # (Auto) 1.0 x10^3/uL (1.0-4.8) Monocytes # (Auto) 0.7 x10^3/uL (0.0-1.1) Eosinophils # (Auto) 0.3 x10^3/uL (0.0-0.7) Basophils # (Auto) 0.1 x10^3/uL (0.0-0.2) Prothrombin Time 13.5 SEC (11.7-14.0) Prothromb Time International Ratio 1.1 (0.8-1.1) Sodium Level 140 mmol/L (136-145) Potassium Level 4.6 mmol/L (3.5-5.1) Chloride Level 104 mmol/L (98-107) Carbon Dioxide Level 21 mmol/L (21-32) Anion Gap 15 (6-14) Blood Urea Nitrogen 47 mg/dL (8-26) Creatinine 3.8 mg/dL (0.7-1.3) Estimated GFR (Cockcroft-Gault) 18.8 Glucose Level 142 mg/dL (70-99) Calcium Level 9.1 mg/dL (8.5-10.1) Magnesium Level 2.1 mg/dL (1.8-2.4) Total Bilirubin 4.4 mg/dL (0.2-1.0) Direct Bilirubin 3.6 mg/dL (0.0-0.2) Aspartate Amino Transf (AST/SGOT) 144 U/L (15-37) Alanine Aminotransferase (ALT/SGPT) 85 U/L (16-63) Alkaline Phosphatase 492 U/L (46-116) Creatine Kinase 143 U/L (39-308) Creatine Kinase MB (Mass) 0.6 ng/mL (0.0-3.6) Creatine Kinase MB Relative Index 0.4 % (0-4) Troponin I Quantitative < 0.017 ng/mL (0.000-0.055) ID-Gqj-H-Type Natriuretic Peptide 931 pg/mL (0-449) Total Protein 6.0 g/dL (6.4-8.2) Albumin 2.5 g/dL (3.4-5.0) Lipase 277 U/L (73-393) Urine Collection Type Unknown Urine Color [place] Urine Clarity Cloudy Urine pH 5.5 Urine Specific [place] 1.015 Urine Protein 30 mg/dL (NEG-TRACE) Urine Glucose (UA) Negative mg/dL (NEG) Urine Ketones (Stick) Negative mg/dL (NEG) Urine Blood Large (NEG) Urine Nitrite Negative (NEG) Urine Bilirubin Small (NEG) Urine Urobilinogen Dipstick 1.0 mg/dL (0.2 mg/dL) Urine Leukocyte Esterase Large (NEG) Urine RBC 20-40 /HPF (0-2) Urine WBC 1-4 /HPF (0-4) Urine Squamous Epithelial Cells Occ /LPF Urine Amorphous Sediment Present /HPF Urine Bacteria Few /HPF (0-FEW) Urine Opiates Screen Pos (NEG) Urine Methadone Screen Neg (NEG) Urine Barbiturates Neg (NEG) Urine Phencyclidine Screen Neg (NEG) Urine Amphetamine/Methamphetamine Neg (NEG) Urine Benzodiazepines Screen Neg (NEG) Urine Cocaine Screen Neg (NEG) Urine Cannabinoids Screen Neg (NEG) Urine Ethyl Alcohol Neg (NEG) VTE Prophylaxis Ordered VTE Prophylaxis Devices: Yes VTE Pharmacological Prophylaxi: Yes Assessment/Plan Assessment/Plan 1. 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 Recent kidney stent placement, [facility] 4. Mod PCM (low albumin) 5. Anemia of CKD PLAN; Admit NS 100cc/hr UA - done Renal sono GEts records from [facility] Consult renal HEparin for DVt prophy PT/OT No nephrotoxins pls Resume home meds WOF hypotension (on clonidine and systolic is 100s) Seen in ER [address] MD Jun 13, 2017 14:46
--- NOTE | 2017-06-13 15:14 | RAD ---
Exam performed: Renal sonogram. Indication: Acute renal failure Date of Service: 06/13/17 . Comparison: None available Technique: Real-time grayscale imaging of the kidneys is performed and images are obtained. Findings: Both kidneys are normal in size and echogenicity. The right kidney measures 11.3 x 6.4 x 6.2 cm whereas the left kidney measures 10.1 x 4.3 x 5.1 cm. There is a 4 cm right pelvic cyst. 5.7 mm Calcifications seen in the inferior left kidney likely nonobstructing calculus. There is no hydronephrosis or perinephric fluid collection. The urinary bladder is well distended and appears normal. There is a stent in the urinary bladder. Patient reports there is a left-sided stent. Note is made that this is not seen extending up to the kidney Impression: 1. Simple left parapelvic cyst with a probable nonobstructing left inferior renal pole calculus.
--- NOTE | 2017-06-13 15:49 | ACF ---
Admit Criteria Forms Admit Criteria Forms Admit Criteria Forms RENAL FAILURE, ACUTE (Place 'X' for any and all applicable criteria): Admission is indicated for ALL (I and II) of the following[A](1)(2)(3)(4)(8)(9)( 10)(11)(12): [X ]I. Acute renal failure as indicated by 1 or more of the following: (X) a) A 3-fold rise in serum creatinine from baseline b) Serum creatinine > 4 mg/dL (354 mol/L) with an acute rise > 0.5 mg/dL (44.2 mol/L) c) Reduction of > 75% in estimated glomerular filtration rate from baseline d) Estimated glomerular filtration rate < 35 mL/min/1.73m2(0.59 mL/sec/1.73m2 ) in a child up to 18 years of age e) Anuria indicated by ALL the following: i) Adequate volume status ii) Cessation of urine output indicated by 1 or more of the followin) Urine output < 0.3 mL/kg/hr for 24 hours) 2) Anuria (urine output < 0.1 mL/kg/hr) for 12hours II. Renal failure cannot be managed in an outpatient or observational care setting as indicating by 1 or more of the following: a) Altered mental status that is severe or persistent b) Cardiac arrhythmias of immediate concern c) Hemodynamic instability d) Significant respiratory findings (eg, pulmonary edema) that are severe (eg, Hypoxemia) or persist despite observation care treatment (eg, Tachypnea) e) Clinically significant electrolyte abnormality that requires inpatient care (eg, hyperkalemia with severe ECG findings)[B] f) Clinically significant metabolic abnormality (eg, acidosis) that is severe or persistent g) Acute treatment of renal failure (eg, renal replacement therapy ) not feasible or appropriate in observational care setting h) Clinical situation too unstable or uncertain (eg, inadequate urine output, ongoing decline in renal function, etiology unclear) i) Necessary support and caregiver ability to comply with outpatient treatment cannot be arranged in observation care timeframe (eg, within 24 hours) j) Other significant finding or clinical condition judged not to be within scope of observation care X)III. General contraindications and/or Inappropriate clinical situations for Observational Care in patients with acute renal failure, when ANY ONE of the following is required: X) a) Prediction of prolongation of LOS based on ANY ONE of the following may be considered as a contraindication for observational care2, 3, 4, 5, 6, 7, 8, 9, 10, 11 X) i) Age > 65 yrs. ii) Patient arriving by ambulance iii) Patient with high acuity iv) Patient requiring vital sign monitoring v) Patient on IV medication b) Systolic blood pressures = [id number] c) Patient with altered mental status including delirium and other alteration of consciousness3 d) Patient whose discharge disposition will be to a long-term home or rehabilitation home should not be managed in Emergency Department Observation Unit. CMS rule requires 3 days hospital stay before such placement3,13 e) Patient with failure to thrive due to broad array of etiologies3, 16,17 f) Inability to ambulate3,14 Extended stay beyond goal length of stay may be needed for [ ]a) Continuing uremic complications(25) [ ]b) Care for comorbidities(26)(27)(28)(29) [ ]c) acute renal failure [ ]d) New need for dialysis (eg, not previously arranged and prepared)(21)( 30) The original [email or web address] content created by [employer] has been revised. The portions of the content which have been revised are identified through the use of italic text, and [facility] [employer] has neither reviewed nor approved the modified material. All other unmodified content is copyright [facility]. Please see references footnoted in the original [facility] [employer] [email or web address] edition 2014 WILLIAMS VELAZQUEZ Jun 13, 2017 15:49
[2017-06-13] MEDS: ONDANSETRON PF 4 MG/2 ML VIAL. IV PRN (16:49)
[2017-06-13 16:50] VITALS: BP 121/67
[2017-06-13 19:00] VITALS: BP 99/45
[2017-06-13] MEDS: cloNIDine HCL 0.1 MG TABLET PO SCH (21:00)
[2017-06-13] MEDS: TERAZOSIN 5 MG CAPSULE. PO SCH (21:00)
[2017-06-13] MEDS: DOCUSATE SODIUM 100 MG CAPSULE. PO SCH (21:11)
[2017-06-13] MEDS: LATANOPROST 0.005% OPHTH SOLUTION 2.5ML BOTTLE. OU SCH (21:11)
[2017-06-13] MEDS: predniSONE 5 MG TABLET PO SCH (21:12)
[2017-06-13] MEDS: HEPARIN PF for SUB-Q USE 5,000 UNIT/0.5 ML VIAL. SQ SCH (21:17)
[2017-06-13 22:41] VITALS: BP 108/62
[2017-06-14 02:51] VITALS: BP 97/63
[2017-06-14 07:00] VITALS: BP 111/67
[2017-06-14 07:48] LABS: CALCIUM 9.1 mg/dL (8.5-10.1); CREATININE 3.7 mg/dL (0.7-1.3); GFR 19.4; POTASSIUM 5.1 mmol/L (3.5-5.1)
[2017-06-14] MEDS: predniSONE 5 MG TABLET PO SCH ×2 (09:38→20:31)
[2017-06-14] MEDS: DOCUSATE SODIUM 100 MG CAPSULE. PO SCH ×2 (09:39→20:30)
[2017-06-14] MEDS: cloNIDine HCL 0.1 MG TABLET PO SCH ×2 (09:44→20:31)
[2017-06-14] MEDS: HEPARIN PF for SUB-Q USE 5,000 UNIT/0.5 ML VIAL. SQ SCH ×2 (09:57→20:41)
[2017-06-14 10:48] VITALS: BP 112/68
--- NOTE | 2017-06-14 11:35 | PDOC ---
PROGRESS NOTES Chief Complaint Chief Complaint Sent by [facility] for abnormal labs Metastatic prostate CA Possible blocked ureter (from dislodged stent) Possible liver failure (hyperbilirubinemia & elevated LFT's) History of Present Illness History of Present Illness Feels tired Content to receive dialysis Vitals Vitals Vital Signs Date Time Temp Pulse Resp B/P (MAP) Pulse Ox O2 Delivery O2 Flow Rate FiO2 06/14/17 10:48 98.0 80 20 112/68 (83) 98 Room Air 98.0 Physical Exam General: Alert, Oriented X3, Cooperative, No acute distress Heart: Regular rate, No murmurs Lungs: Clear, Other (No acute respiratory distress) Abdomen: Normal bowel sounds, Soft, No tenderness Extremities: No clubbing, No cyanosis, No edema Skin: No rashes, No breakdown, No significant lesion Labs LABS Laboratory Tests Test 06/13/17 12:35 06/14/17 04:14 Urine Collection Type Unknown Urine Color Ayleen Urine Clarity Cloudy Urine pH 5.5 Urine Specific [place] 1.015 Urine Protein 30 mg/dL (NEG-TRACE) Urine Glucose (UA) Negative mg/dL (NEG) Urine Ketones (Stick) Negative mg/dL (NEG) Urine Blood Large (NEG) Urine Nitrite Negative (NEG) Urine Bilirubin Small (NEG) Urine Urobilinogen Dipstick 1.0 mg/dL (0.2 mg/dL) Urine Leukocyte Esterase Large (NEG) Urine RBC 20-40 /HPF (0-2) Urine WBC 1-4 /HPF (0-4) Urine Squamous Epithelial Cells Occ /LPF Urine Amorphous Sediment Present /HPF Urine Bacteria Few /HPF (0-FEW) Urine Opiates Screen Pos (NEG) Urine Methadone Screen Neg (NEG) Urine Barbiturates Neg (NEG) Urine Phencyclidine Screen Neg (NEG) Urine Amphetamine/Methamphetamine Neg (NEG) Urine Benzodiazepines Screen Neg (NEG) Urine Cocaine Screen Neg (NEG) Urine Cannabinoids Screen Neg (NEG) Urine Ethyl Alcohol Neg (NEG) Sodium Level 140 mmol/L (136-145) Potassium Level 5.1 mmol/L (3.5-5.1) Chloride Level 106 mmol/L (98-107) Carbon Dioxide Level 19 mmol/L (21-32) Anion Gap 15 (6-14) Blood Urea Nitrogen 46 mg/dL (8-26) Creatinine 3.7 mg/dL (0.7-1.3) Estimated GFR (Cockcroft-Gault) 19.4 Glucose Level 117 mg/dL (70-99) Calcium Level 9.1 mg/dL (8.5-10.1) Review of Systems Review of Systems c/o hunger c/o groin tenderness Assessment and Plan Assessmemt and Plan Assessment/Plan 1. ARTI on CKD: monitor Cr levels. Consult renal 2. Prostate CA: monitor PSA levels. Consult heme ([facility]) 3. Recent kidney stent placement, [facility]: check if dislodged 5. Anemia of CKD: monitor 6. Hyperbilirubinemia: consult GI ([place]) 7. Liver failure: monitor elevated LFT's, bilirubin Continue IV fluids Problems: Comment Review of Relevant I have reviewed the following items percy (where applicable) has been applied. Labs Laboratory Tests Test 06/13/17 11:00 06/13/17 12:35 06/14/17 04:14 White Blood Count 4.6 x10^3/uL (4.0-11.0) Red Blood Count 3.65 x10^6/uL (4.30-5.70) Hemoglobin 10.5 g/dL (13.0-17.5) Hematocrit 31.3 % (39.0-53.0) Mean Corpuscular Volume 86 fL (79-100) Mean Corpuscular Hemoglobin 29 pg (25-35) Mean Corpuscular Hemoglobin Concent 34 g/dL (31-37) Red Cell Distribution Width 15.1 % (11.5-14.5) Platelet Count 230 x10^3/uL (140-400) Neutrophils (%) (Auto) 55 % (31-73) Lymphocytes (%) (Auto) 22 % (24-48) Monocytes (%) (Auto) 16 % (0-9) Eosinophils (%) (Auto) 7 % (0-3) Basophils (%) (Auto) 1 % (0-3) Neutrophils # (Auto) 2.5 x10^3uL (1.8-7.7) Lymphocytes # (Auto) 1.0 x10^3/uL (1.0-4.8) Monocytes # (Auto) 0.7 x10^3/uL (0.0-1.1) Eosinophils # (Auto) 0.3 x10^3/uL (0.0-0.7) Basophils # (Auto) 0.1 x10^3/uL (0.0-0.2) Prothrombin Time 13.5 SEC (11.7-14.0) Prothromb Time International Ratio 1.1 (0.8-1.1) Sodium Level 140 mmol/L (136-145) 140 mmol/L (136-145) Potassium Level 4.6 mmol/L (3.5-5.1) 5.1 mmol/L (3.5-5.1) Chloride Level 104 mmol/L (98-107) 106 mmol/L (98-107) Carbon Dioxide Level 21 mmol/L (21-32) 19 mmol/L (21-32) Anion Gap 15 (6-14) 15 (6-14) Blood Urea Nitrogen 47 mg/dL (8-26) 46 mg/dL (8-26) Creatinine 3.8 mg/dL (0.7-1.3) 3.7 mg/dL (0.7-1.3) Estimated GFR (Cockcroft-Gault) 18.8 19.4 Glucose Level 142 mg/dL (70-99) 117 mg/dL (70-99) Calcium Level 9.1 mg/dL (8.5-10.1) 9.1 mg/dL (8.5-10.1) Magnesium Level 2.1 mg/dL (1.8-2.4) Total Bilirubin 4.4 mg/dL (0.2-1.0) Direct Bilirubin 3.6 mg/dL (0.0-0.2) Aspartate Amino Transf (AST/SGOT) 144 U/L (15-37) Alanine Aminotransferase (ALT/SGPT) 85 U/L (16-63) Alkaline Phosphatase 492 U/L (46-116) Creatine Kinase 143 U/L (39-308) Creatine Kinase MB (Mass) 0.6 ng/mL (0.0-3.6) Creatine Kinase MB Relative Index 0.4 % (0-4) Troponin I Quantitative < 0.017 ng/mL (0.000-0.055) NJ-[id number]-Type Natriuretic Peptide 931 pg/mL (0-449) Total Protein 6.0 g/dL (6.4-8.2) Albumin 2.5 g/dL (3.4-5.0) Lipase 277 U/L (73-393) Urine Collection Type Unknown Urine Color Ayleen Urine Clarity Cloudy Urine pH 5.5 Urine Specific [place] 1.015 Urine Protein 30 mg/dL (NEG-TRACE) Urine Glucose (UA) Negative mg/dL (NEG) Urine Ketones (Stick) Negative mg/dL (NEG) Urine Blood Large (NEG) Urine Nitrite Negative (NEG) Urine Bilirubin Small (NEG) Urine Urobilinogen Dipstick 1.0 mg/dL (0.2 mg/dL) Urine Leukocyte Esterase Large (NEG) Urine RBC 20-40 /HPF (0-2) Urine WBC 1-4 /HPF (0-4) Urine Squamous Epithelial Cells Occ /LPF Urine Amorphous Sediment Present /HPF Urine Bacteria Few /HPF (0-FEW) Urine Opiates Screen Pos (NEG) Urine Methadone Screen Neg (NEG) Urine Barbiturates Neg (NEG) Urine Phencyclidine Screen Neg (NEG) Urine Amphetamine/Methamphetamine Neg (NEG) Urine Benzodiazepines Screen Neg (NEG) Urine Cocaine Screen Neg (NEG) Urine Cannabinoids Screen Neg (NEG) Urine Ethyl Alcohol Neg (NEG) Laboratory Tests Test 06/13/17 12:35 06/14/17 04:14 Urine Collection Type Unknown Urine Color Ayleen Urine Clarity Cloudy Urine pH 5.5 Urine Specific [place] 1.015 Urine Protein 30 mg/dL (NEG-TRACE) Urine Glucose (UA) Negative mg/dL (NEG) Urine Ketones (Stick) Negative mg/dL (NEG) Urine Blood Large (NEG) Urine Nitrite Negative (NEG) Urine Bilirubin Small (NEG) Urine Urobilinogen Dipstick 1.0 mg/dL (0.2 mg/dL) Urine Leukocyte Esterase Large (NEG) Urine RBC 20-40 /HPF (0-2) Urine WBC 1-4 /HPF (0-4) Urine Squamous Epithelial Cells Occ /LPF Urine Amorphous Sediment Present /HPF Urine Bacteria Few /HPF (0-FEW) Urine Opiates Screen Pos (NEG) Urine Methadone Screen Neg (NEG) Urine Barbiturates Neg (NEG) Urine Phencyclidine Screen Neg (NEG) Urine Amphetamine/Methamphetamine Neg (NEG) Urine Benzodiazepines Screen Neg (NEG) Urine Cocaine Screen Neg (NEG) Urine Cannabinoids Screen Neg (NEG) Urine Ethyl Alcohol Neg (NEG) Sodium Level 140 mmol/L (136-145) Potassium Level 5.1 mmol/L (3.5-5.1) Chloride Level 106 mmol/L (98-107) Carbon Dioxide Level 19 mmol/L (21-32) Anion Gap 15 (6-14) Blood Urea Nitrogen 46 mg/dL (8-26) Creatinine 3.7 mg/dL (0.7-1.3) Estimated GFR (Cockcroft-Gault) 19.4 Glucose Level 117 mg/dL (70-99) Calcium Level 9.1 mg/dL (8.5-10.1) Medications Current Medications Ondansetron HCl (Zofran) 4 mg PRN Q6HRS PRN IV NAUSEA/VOMITING Last administered on 06/13/17 16:49; Start 06/13/17 at 14:45 Prochlorperazine Edisylate (Compazine) 10 mg PRN Q6HRS PRN IV NAUSEA/VOMITING; Start 06/13/17 at 14:45 Prochlorperazine (Compazine) 25 mg PRN Q12HR PRN HI NAUSEA/VOMITING; Start at 14:45 Oxycodone HCl (Roxicodone) 5 mg PRN Q3HRS PRN PO BREAKTHROUGH PAIN; Start 06/13 at 14:45 Morphine Sulfate 1 mg PRN Q1HR PRN IV PAIN; Start 06/13/17 at 14:45 Acetaminophen (Tylenol) 650 mg PRN Q6HRS PRN PO Headaches, Temp > 101.5F; Start 06/13/17 at 14:45 Docusate Sodium (Colace) 100 mg BID PO Last administered on 06/13/17 21:11; Start 06/13/17 at 21:00 Magnesium Hydroxide (Milk Of Magnesia) 2,400 mg PRN Q12HR PRN PO CONSTIPATION; Start 06/13/17 at 14:45 Bisacodyl (Dulcolax Supp) 10 mg PRN DAILY PRN HI CONSTIPATION; Start 06/13/17 at 14:45 Heparin Sodium (Porcine) (Heparin Sq) 5,000 unit Q12HR SQ Last administered on 06/14/17 09:57; Start 06/13/17 at 21:00 Clonidine HCl (Catapres) 0.1 mg BID PO Last administered on 06/14/17 09:44; Start 06/13/17 at 21:00 Latanoprost (Xalatan) 1 drop HS OU Last administered on 06/13/17 21:11; Start 06/13/17 at 21:00 Ondansetron HCl (Zofran Odt) 4 mg PRN Q8HRS PRN PO NAUSEA/VOMITING; Start 06/13 at 14:45 Prednisone (Prednisone) 5 mg BID PO Last administered on 06/14/17 09:38; Start 06/13/17 at 21:00 Terazosin HCl (Hytrin) 5 mg HS PO ; Start 06/13/17 at 21:00 Sodium Chloride 1,000 ml @ 100 mls/hr Q10H IV Last administered on 06/13/17 23:56; Start 06/13/17 at 14:45 Active Scripts Active Zofran Odt (Ondansetron) 4 Mg Tab.rapdis 4 Mg PO Q8HRS PRN Reported Xalatan (Latanoprost) 2.5 Ml Drops 1 Drop OP HS Clonidine Hcl 0.1 Mg Tablet 0.1 Mg PO BID Prednisone 5 Mg Tablet 5 Mg PO BID Terazosin Hcl 5 Mg Capsule 5 Mg PO HS Vitals/I & O Vital Sign - Last 24 Hours 06/13/17 06/13/17 06/13/17 06/13/17 11:44 12:14 13:14 14:14 Pulse 86 78 80 84 Resp 20 22 20 B/P (MAP) 105/65 (78) 99/59 (72) 107/65 (79) 105/62 (76) Pulse Ox 95 97 96 99 O2 Delivery Room Air Room Air 06/13/17 06/13/17 06/13/17 06/13/17 16:50 17:28 19:00 20:00 Temp 98.9 99.5 98.9 99.5 Pulse 90 91 Resp 20 18 B/P (MAP) 121/67 (85) 99/45 (63) Pulse Ox 100 96 O2 Delivery Room Air Room Air Room Air Room Air 06/13/17 06/13/17 06/13/17 06/14/17 21:00 21:00 22:41 02:51 Temp 98.9 98.5 98.9 98.5 Pulse 91 91 87 88 Resp 18 18 B/P (MAP) 99/45 99/45 108/62 (77) 97/63 (74) Pulse Ox 97 98 O2 Delivery Room Air Room Air 06/14/17 06/14/17 06/14/17 06/14/17 07:00 08:00 09:44 10:48 Temp 97.9 98.0 97.9 98.0 Pulse 79 79 80 Resp 20 20 B/P (MAP) 111/67 (82) 111/67 112/68 (83) Pulse Ox 97 98 O2 Delivery Room Air Room Air Room Air Intake and Output 06/13/17 06/13/17 06/14/17 15:00 23:00 07:00 Intake Total 60 ml 1800 ml Output Total 100 ml 700 ml Balance -40 ml 1100 ml ENEDINA PARSON III DO Jun 14, 2017 11:35
[2017-06-14] MEDS: IV NORMAL SALINE 1000ML BAG 1,000 ML IV SCH ×2 (11:41→20:45)
--- NOTE | 2017-06-14 11:57 | PDOC2 ---
CONSULT Date of Consult Date of Consult DATE: 06/14/17 TIME: 11:46 Reason for Consult Reason for Consult: RENAL FAILURE Referring Physician Referring Physician: GEETHA Identification/Chief Complaint Chief Complaint ABNORMAL LABS Problems: Source Source: Chart review, Patient History of Present Illness Reason for Visit: THIS IS A 76 YR OLD ADMITTED WITH ABNORMAL LABS. HIS [facility]YSICI[facility] CALLED HIM AND ASKED TO COME IN DUE TO LABS SHOWING KIDNEY FAILURE. HIS CR IS 3.7. HX POS FOR RECENT DX OF LEFT HYDRO. HE HAD A URETERAL STENT PLACED LAST MONTH ON THE LEFT. CR PEAKED AT ABOUT 2.5 IN OFFICE LABS AND THEN POST STENT AND RESOLUTION OF THE HYDROURETER HIS CR CAME DOWN TO 1.7. SONO DONE HERE SHOWED NO HYDRO AT THIS TIME BUT STENT HAS MIGRATED INTO THE BLADDER. A CT SCAN DONE OP LAST MONTH SHOWED MULTIPLE LIVER LESIONS AND PROB AORTIC AREA ADENOPATHY. HX NOTABLE FOR PROSTATE CA IN 1998 APPARENTLY TX WITH RAD. THERE IS CONCERN OF MET PROSTATE CA NOW. STATES HIS APPETITE HAS BEEN POOR FOR ABOUT 2 MONTHS AND HE HAS HAD SOME UNQUANTIFIED WT LOSS Past Medical History Cardiovascular: HTN Pulmonary: No pertinent hx GI: No pertinent hx Heme/Onc: No pertinent hx Hepatobiliary: No pertinent hx Renal/: Chronic renal insuff Endocrine: No pertinent hx Past Surgical History Past Surgical History: Other (kidnet stent placement, left (2 mos ago)) Family History Family History: Hypertension Social History No ALCOHOL: none Drugs: None Current Medications Current Medications Current Medications Ondansetron HCl (Zofran) 4 mg PRN Q6HRS PRN IV NAUSEA/VOMITING Last administered on 06/13/17t 16:49; Start 06/13/17 at 14:45 Prochlorperazine Edisylate (Compazine) 10 mg PRN Q6HRS PRN IV NAUSEA/VOMITING; Start 06/13/17 at 14:45 Prochlorperazine (Compazine) 25 mg PRN Q12HR PRN OR NAUSEA/VOMITING; Start at 14:45 Oxycodone HCl (Roxicodone) 5 mg PRN Q3HRS PRN PO BREAKTHROUGH PAIN; Start 06/13 at 14:45 Morphine Sulfate 1 mg PRN Q1HR PRN IV PAIN; Start 06/13/17 at 14:45 Acetaminophen (Tylenol) 650 mg PRN Q6HRS PRN PO Headaches, Temp > 101.5F; Start 06/13/17 at 14:45 Docusate Sodium (Colace) 100 mg BID PO Last administered on 06/13/17 21:11; Start 06/13/17 at 21:00 Magnesium Hydroxide (Milk Of Magnesia) 2,400 mg PRN Q12HR PRN PO CONSTIPATION; Start 06/13/17 at 14:45 Bisacodyl (Dulcolax Supp) 10 mg PRN DAILY PRN OR CONSTIPATION; Start 06/13/17 at 14:45 Heparin Sodium (Porcine) (Heparin Sq) 5,000 unit Q12HR SQ Last administered on 06/14/17 09:57; Start 06/13/17 at 21:00 Clonidine HCl (Catapres) 0.1 mg BID PO Last administered on 06/14/17 09:44; Start 06/13/17 at 21:00 Latanoprost (Xalatan) 1 drop HS OU Last administered on 06/13/17 21:11; Start 06/13/17 at 21:00 Ondansetron HCl (Zofran Odt) 4 mg PRN Q8HRS PRN PO NAUSEA/VOMITING; Start 06/13 at 14:45 Prednisone (Prednisone) 5 mg BID PO Last administered on 06/14/17 09:38; Start 06/13/17 at 21:00 Terazosin HCl (Hytrin) 5 mg HS PO ; Start 06/13/17 at 21:00 Sodium Chloride 1,000 ml @ 100 mls/hr Q10H IV Last administered on 06/14/17 11:41; Start 06/13/17 at 14:45 Active Scripts Active Zofran Odt (Ondansetron) 4 Mg Tab.rapdis 4 Mg PO Q8HRS PRN Reported Xalatan (Latanoprost) 2.5 Ml Drops 1 Drop OP HS Clonidine Hcl 0.1 Mg Tablet 0.1 Mg PO BID Prednisone 5 Mg Tablet 5 Mg PO BID Terazosin Hcl 5 Mg Capsule 5 Mg PO HS Allergies Allergies: Coded Allergies: No Known Drug Allergies (Unverified , 03/12/16) ROS General: YES: Fatigue, Malaise, Appetite PSYCHOLOGICAL ROS: YES: Anxiety Eyes: Yes Decreased vision HEENT: YES: Heacaches Respiratory: YES: Cough Gastrointestinal: Yes Nausea, Yes Constipation, Yes Other (EPI PAIN) Genitourinary: YES Other (NOCTURIA) Musculoskeletal: Yes Muscular Weakness Neurological: Yes Weakness Skin: Yes Dry Skin Physical Exam General: Alert, Oriented X3, Cooperative, No acute distress HEENT: Atraumatic, PERRLA, EOMI, Mucous membr. moist/pink Lungs: Clear to auscultation, Normal air movement Heart: Regular rate, Normal S1, Normal S2 Abdomen: Normal bowel sounds, Soft, No tenderness Extremities: No clubbing Neuro: Normal speech, Cranial nerves 3-12 NL Psych/Mental Status: Mental status NL, Mood NL MUSCULOSKELETAL: No joint tenderness, No deformity, No swelling Vitals VITALS Vital Signs Date Time Temp Pulse Resp B/P (MAP) Pulse Ox O2 Delivery O2 Flow Rate FiO2 06/14/17 10:48 98.0 80 20 112/68 (83) 98 Room Air 98.0 Labs Labs Laboratory Tests Test 06/13/17 11:00 06/13/17 12:35 06/14/17 04:14 White Blood Count 4.6 x10^3/uL (4.0-11.0) Red Blood Count 3.65 x10^6/uL (4.30-5.70) Hemoglobin 10.5 g/dL (13.0-17.5) Hematocrit 31.3 % (39.0-53.0) Mean Corpuscular Volume 86 fL (79-100) Mean Corpuscular Hemoglobin 29 pg (25-35) Mean Corpuscular Hemoglobin Concent 34 g/dL (31-37) Red Cell Distribution Width 15.1 % (11.5-14.5) Platelet Count 230 x10^3/uL (140-400) Neutrophils (%) (Auto) 55 % (31-73) Lymphocytes (%) (Auto) 22 % (24-48) Monocytes (%) (Auto) 16 % (0-9) Eosinophils (%) (Auto) 7 % (0-3) Basophils (%) (Auto) 1 % (0-3) Neutrophils # (Auto) 2.5 x10^3uL (1.8-7.7) Lymphocytes # (Auto) 1.0 x10^3/uL (1.0-4.8) Monocytes # (Auto) 0.7 x10^3/uL (0.0-1.1) Eosinophils # (Auto) 0.3 x10^3/uL (0.0-0.7) Basophils # (Auto) 0.1 x10^3/uL (0.0-0.2) Prothrombin Time 13.5 SEC (11.7-14.0) Prothromb Time International Ratio 1.1 (0.8-1.1) Sodium Level 140 mmol/L (136-145) 140 mmol/L (136-145) Potassium Level 4.6 mmol/L (3.5-5.1) 5.1 mmol/L (3.5-5.1) Chloride Level 104 mmol/L (98-107) 106 mmol/L (98-107) Carbon Dioxide Level 21 mmol/L (21-32) 19 mmol/L (21-32) Anion Gap 15 (6-14) 15 (6-14) Blood Urea Nitrogen 47 mg/dL (8-26) 46 mg/dL (8-26) Creatinine 3.8 mg/dL (0.7-1.3) 3.7 mg/dL (0.7-1.3) Estimated GFR (Cockcroft-Gault) 18.8 19.4 Glucose Level 142 mg/dL (70-99) 117 mg/dL (70-99) Calcium Level 9.1 mg/dL (8.5-10.1) 9.1 mg/dL (8.5-10.1) Magnesium Level 2.1 mg/dL (1.8-2.4) Total Bilirubin 4.4 mg/dL (0.2-1.0) Direct Bilirubin 3.6 mg/dL (0.0-0.2) Aspartate Amino Transf (AST/SGOT) 144 U/L (15-37) Alanine Aminotransferase (ALT/SGPT) 85 U/L (16-63) Alkaline Phosphatase 492 U/L (46-116) Creatine Kinase 143 U/L (39-308) Creatine Kinase MB (Mass) 0.6 ng/mL (0.0-3.6) Creatine Kinase MB Relative Index 0.4 % (0-4) Troponin I Quantitative < 0.017 ng/mL (0.000-0.055) BN-Opm-U-Type Natriuretic Peptide 931 pg/mL (0-449) Total Protein 6.0 g/dL (6.4-8.2) Albumin 2.5 g/dL (3.4-5.0) Lipase 277 U/L (73-393) Urine Collection Type Unknown Urine Color Ayleen Urine Clarity Cloudy Urine pH 5.5 Urine Specific [place] 1.015 Urine Protein 30 mg/dL (NEG-TRACE) Urine Glucose (UA) Negative mg/dL (NEG) Urine Ketones (Stick) Negative mg/dL (NEG) Urine Blood Large (NEG) Urine Nitrite Negative (NEG) Urine Bilirubin Small (NEG) Urine Urobilinogen Dipstick 1.0 mg/dL (0.2 mg/dL) Urine Leukocyte Esterase Large (NEG) Urine RBC 20-40 /HPF (0-2) Urine WBC 1-4 /HPF (0-4) Urine Squamous Epithelial Cells Occ /LPF Urine Amorphous Sediment Present /HPF Urine Bacteria Few /HPF (0-FEW) Urine Opiates Screen Pos (NEG) Urine Methadone Screen Neg (NEG) Urine Barbiturates Neg (NEG) Urine Phencyclidine Screen Neg (NEG) Urine Amphetamine/Methamphetamine Neg (NEG) Urine Benzodiazepines Screen Neg (NEG) Urine Cocaine Screen Neg (NEG) Urine Cannabinoids Screen Neg (NEG) Urine Ethyl Alcohol Neg (NEG) Laboratory Tests Test 06/13/17 12:35 06/14/17 04:14 Urine Collection Type Unknown Urine Color Ayleen Urine Clarity Cloudy Urine pH 5.5 Urine Specific [place] 1.015 Urine Protein 30 mg/dL (NEG-TRACE) Urine Glucose (UA) Negative mg/dL (NEG) Urine Ketones (Stick) Negative mg/dL (NEG) Urine Blood Large (NEG) Urine Nitrite Negative (NEG) Urine Bilirubin Small (NEG) Urine Urobilinogen Dipstick 1.0 mg/dL (0.2 mg/dL) Urine Leukocyte Esterase Large (NEG) Urine RBC 20-40 /HPF (0-2) Urine WBC 1-4 /HPF (0-4) Urine Squamous Epithelial Cells Occ /LPF Urine Amorphous Sediment Present /HPF Urine Bacteria Few /HPF (0-FEW) Urine Opiates Screen Pos (NEG) Urine Methadone Screen Neg (NEG) Urine Barbiturates Neg (NEG) Urine Phencyclidine Screen Neg (NEG) Urine Amphetamine/Methamphetamine Neg (NEG) Urine Benzodiazepines Screen Neg (NEG) Urine Cocaine Screen Neg (NEG) Urine Cannabinoids Screen Neg (NEG) Urine Ethyl Alcohol Neg (NEG) Sodium Level 140 mmol/L (136-145) Potassium Level 5.1 mmol/L (3.5-5.1) Chloride Level 106 mmol/L (98-107) Carbon Dioxide Level 19 mmol/L (21-32) Anion Gap 15 (6-14) Blood Urea Nitrogen 46 mg/dL (8-26) Creatinine 3.7 mg/dL (0.7-1.3) Estimated GFR (Cockcroft-Gault) 19.4 Glucose Level 117 mg/dL (70-99) Calcium Level 9.1 mg/dL (8.5-10.1) Assessment/Plan Assessment/Plan IMP ARTI WITH CR OF 3.7-PROB ATN-PROB XIAO VASOCONSTRICTION FROM ENDOTHELIN CKD PROB STAGE 3 WITH CR OF 1.7 HX OF PROSTATE CANCER PROB MET PROSTATE CANCER NOW PROB LIVER METS WITH INCREASED LFT'S/LIVER FAILURE HX OF LEFT HYDROURETER AND LEFT URETERAL STENT PLACEMENT URETERAL STENT MIGRATION TO THE BLADDER-BUT NOT CAUSING ANY ISSUES AT THIS TIME NON OBSTRUCTING LEFT RENAL CALCULI LEFT RENAL CYST ANEMIA PLAN STOP TYLENOL SUGGEST GI EVAL SUGGEST HEME/ONC EVAL RENAL SONOGRAM REVIEWED-NO ACUTE MORPHOLOGICAL CHANGES NOTED START HYDRATION JOLIE KEARNS MD Jun 14, 2017 11:57
[2017-06-14 14:50] VITALS: BP 110/69
[2017-06-14 19:00] VITALS: BP 133/70
[2017-06-14] MEDS: TERAZOSIN 5 MG CAPSULE. PO SCH (20:31)
[2017-06-14] MEDS: LATANOPROST 0.005% OPHTH SOLUTION 2.5ML BOTTLE. OU SCH (20:31)
[2017-06-14 22:53] VITALS: BP 137/79
[2017-06-15 03:00] VITALS: BP 113/64
[2017-06-15 04:43] LABS: BASO % 1 % (0-3); EOS % 1 % (0-3); HEMATOCRIT 30.1 % (39.0-53.0); HEMOGLOBIN 9.8 g/dL (13.0-17.5); LYMPH # 0.6 x10^3/uL (1.0-4.8); LYMPH % 15 % (24-48); MEAN CORPUSCULAR HEMOGLOBIN 29 pg (25-35); MEAN CORPUSCULAR HGB CONC 33 g/dL (31-37); MEAN CORPUSCULAR VOLUME 88 fL (79-100); MONO % 10 % (0-9); NEUT % 73 % (31-73); PLATELET COUNT 219 x10^3/uL (140-400); RED BLOOD COUNT 3.42 x10^6/uL (4.30-5.70); RED CELL DISTRIBUTION WIDTH 15.4 % (11.5-14.5); WHITE BLOOD COUNT 4.5 x10^3/uL (4.0-11.0)
[2017-06-15 05:06] LABS: INR 1.2 (0.8-1.1); PROTHROMBIN TIME PATIENT 14.1 SEC (11.7-14.0)
[2017-06-15 05:50] LABS: CALCIUM 8.3 mg/dL (8.5-10.1); CREATININE 3.7 mg/dL (0.7-1.3); GFR 19.4
[2017-06-15 05:52] LABS: POTASSIUM 5.3 mmol/L (3.5-5.1)
[2017-06-15 07:00] VITALS: BP 122/72
[2017-06-15] MEDS: IV NORMAL SALINE 1000ML BAG 1,000 ML IV SCH ×2 (08:32→20:02)
[2017-06-15] MEDS: cloNIDine HCL 0.1 MG TABLET PO SCH ×2 (08:33→20:03)
[2017-06-15] MEDS: predniSONE 5 MG TABLET PO SCH ×2 (08:34→20:03)
[2017-06-15] MEDS: DOCUSATE SODIUM 100 MG CAPSULE. PO SCH ×2 (08:34→20:03)
[2017-06-15] MEDS: HEPARIN PF for SUB-Q USE 5,000 UNIT/0.5 ML VIAL. SQ SCH ×2 (08:39→20:11)
--- NOTE | 2017-06-15 10:03 | CONS ---
DATE OF CONSULTATION: 06/15/2017 REQUESTING PHYSICIAN: Dr. Mame Cervantes. REASON FOR CONSULTATION: Prostate cancer. HISTORY OF PRESENT ILLNESS: The patient is a 76-year-old -[place]ish gentleman who was diagnosed with prostate cancer in 2006. He had a T1c , [place] score 6 prostate cancer and he underwent radiation therapy with hormonal deprivation with Lupron given every 3 months until 2010. In May 2012, his PSA increased and a bone scan in September 2012 revealed a lesion at T9. In November 2012, he was started on Zytiga and prednisone. CT scan of the chest, abdomen and pelvis showed possible lesions in the liver. Bone scan was stable at that time. His PSA was getting worse. Hence, he was started on Xtandi in October 2016, but he had severe abdominal pain and he was unable to tolerate it and it was discontinued. In December 2016, he was started on ketoconazole and hydrocortisone, but he did not take it because it was too expensive. He continues to get denosumab and Lupron. He gets Lupron every 3 months. He had a stent placed by Dr. 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 He underwent a PET scan in February 2017 that revealed progression of the left iliac and left pararectal adenopathy and worsening hepatic metastasis. Bone scan in February 2017 was stable with T9 involvement. He was admitted to [facility] on 06/13/2017 with worsening renal failure. His creatinine was 3.8. Nephrology consultation was obtained. Ultrasound of the kidneys on 06/13/2017 did not reveal any evidence of hydronephrosis. His PSA on 06/14/2017 was 70.62, which is worse when compared to his previous PSA levels. His PSA on 05/15/2017 was 64.84. I was asked to see the patient for further evaluation and management of prostate cancer. PAST MEDICAL HISTORY: Hypertension. PAST SURGICAL HISTORY: Kidney stent placement. FAMILY HISTORY: Positive for hypertension. SOCIAL HISTORY: No smoking or alcohol abuse. REVIEW OF SYSTEMS: A 12-point review of system was performed. Pertinent positives are mentioned in the history of present illness. Rest of the system review is negative. PHYSICAL EXAMINATION: GENERAL APPEARANCE: The patient is a 76-year-old -[place]ish gentleman who is in no acute cardiorespiratory distress. VITAL SIGNS: Blood pressure 113/64, temperature 98.4. HEENT: Head atraumatic, normocephalic. Eyes: No icterus. NECK: Supple. CHEST: Bilaterally symmetrical. No crepitations or rhonchi heard. HEART: S1, S2 normal. ABDOMEN: Soft, nontender. CENTRAL NERVOUS SYSTEM: No focal neurological deficits. LYMPHATICS: No lymphadenopathy. SKIN: No rashes. PSYCHOLOGIC: Mood and affect are appropriate. MUSCULOSKELETAL: No joint effusions. LABORATORY DATA: PSA on 06/14/2017 is 70.62. Creatinine was 3.7 on 06/15/2017, hemoglobin 9.8. IMPRESSION AND PLAN: 1. Metastatic prostate cancer with evidence of bone metastasis, lymphadenopathy and progressive liver metastasis noted on PET scan in February 2017. The patient has failed previous therapies with Zytiga and prednisone, Xtandi which he did not tolerate, he could not afford hydrocortisone and ketoconazole. He has been evaluated by Dr. Childers and the patient declined chemotherapy. Hence, he is on Lupron and denosumab. I reviewed in detail with the patient regarding the recent PET scan findings. Progressive liver disease could be related to adenocarcinoma of the prostate versus small cell transformation. His PSA is only 70 despite progressive disease in the liver. Hence, I offered biopsy of the liver to evaluate for small cell transformation. He mentions that even if he has a transformation to a small cell histology, he would not want to pursue any type of chemotherapy. Hence, it was decided not to pursue with a biopsy. He wishes to focus on quality of life and supportive care with Lupron and denosumab. He does not want to pursue with chemotherapy. All his questions were answered. 2. Renal failure. Ultrasound does not reveal any evidence of hydronephrosis. He does have a stent placed recently. Appreciate Nephrology consultation. 3. Anemia due to malignancy. Continue to monitor. 4. Bone metastasis. He gets denosumab. He will continue this as outpatient. DARLENE SMITH MD DR: ALEXIS/najma JOB#: [id number] / [id number] MILLICENT
--- NOTE | 2017-06-15 10:24 | PDOC ---
Renal-Progress Notes Subjective Notes Notes NO COMPLAINTS VOICED History of Present Illness Hx of present illness STABLE Vitals Vitals Vital Signs Date Time Temp Pulse Resp B/P (MAP) Pulse Ox O2 Delivery O2 Flow Rate FiO2 06/15/17 08:33 76 122/72 06/15/17 07:00 95.9 18 98 Room Air 95.9 Weight Weight [ ] I.O. Intake and Output Intake and Output 06/15/17 07:00 Intake Total 860 ml Output Total 925 ml Balance -65 ml Intake Oral 860 ml Output Urine Total 925 ml # Voids 2 # Bowel Movements 2 Labs Labs Laboratory Tests Test 06/15/17 03:45 White Blood Count 4.5 x10^3/uL (4.0-11.0) Red Blood Count 3.42 x10^6/uL (4.30-5.70) Hemoglobin 9.8 g/dL (13.0-17.5) Hematocrit 30.1 % (39.0-53.0) Mean Corpuscular Volume 88 fL (79-100) Mean Corpuscular Hemoglobin 29 pg (25-35) Mean Corpuscular Hemoglobin Concent 33 g/dL (31-37) Red Cell Distribution Width 15.4 % (11.5-14.5) Platelet Count 219 x10^3/uL (140-400) Neutrophils (%) (Auto) 73 % (31-73) Lymphocytes (%) (Auto) 15 % (24-48) Monocytes (%) (Auto) 10 % (0-9) Eosinophils (%) (Auto) 1 % (0-3) Basophils (%) (Auto) 1 % (0-3) Neutrophils # (Auto) 3.3 x10^3uL (1.8-7.7) Lymphocytes # (Auto) 0.6 x10^3/uL (1.0-4.8) Monocytes # (Auto) 0.5 x10^3/uL (0.0-1.1) Eosinophils # (Auto) 0.0 x10^3/uL (0.0-0.7) Basophils # (Auto) 0.0 x10^3/uL (0.0-0.2) Prothrombin Time 14.1 SEC (11.7-14.0) Prothromb Time International Ratio 1.2 (0.8-1.1) Sodium Level 140 mmol/L (136-145) Potassium Level 5.3 mmol/L (3.5-5.1) Chloride Level 109 mmol/L (98-107) Carbon Dioxide Level 21 mmol/L (21-32) Anion Gap 10 (6-14) Blood Urea Nitrogen 44 mg/dL (8-26) Creatinine 3.7 mg/dL (0.7-1.3) Estimated GFR (Cockcroft-Gault) 19.4 Glucose Level 110 mg/dL (70-99) Calcium Level 8.3 mg/dL (8.5-10.1) Review of Systems Constitutional: yes: weakness, alert, oriented Ears/Nose/Throat: Yes: no symptom reported Eyes: Yes: no symptom reported Pulmonary: Yes no symptom reported Gastrointestional: Yes: no symptom reported Musculoskeletal: Yes: no symptom reported Skin: Yes no symptom reported Psychiatric/Neurological: Yes: no symptom reported Physical Exam General Appearance: no apparent distress Respiratory: bilateral CTA Heart: S1S2, RRR Abdomen: soft, bowel sounds present Genitourinary: bladder flat Extremities: pulses present Neurology: alert, oriented Assessment Assessment IMP ARTI-CR OF 3.7 CKD STAGE 3 WITH CR OF 2.0 LIVER FAILURE MET PROSTATE CANCER ANEMIA HX OF LEFT HYDRO-STENT PLACED COUPLE MONTHS AGO STENT MIGRATION INTO THE BLADDER-BUT HYDRO IS DECOMPRESSED PLAN CONT IVF'S PER DR SMITH PT DOES NOT WANT ANY CHEMO OR AGGRESSIVE THERAPY PRISON PT IS NOT A CANDIDATE FOR DIALYSIS DUE TO HIS HX OF MET PROSTATE CA SUGGEST PALLIATIVE CARE EVALUATION D/W ATTENDING JOLIE KEARNS MD Jun 15, 2017 10:24
[2017-06-15 11:27] VITALS: BP 119/71
--- NOTE | 2017-06-15 11:54 | PDOC ---
PROGRESS NOTES Chief Complaint Chief Complaint Sent by [facility] for abnormal labs Metastatic prostate CA Possible blocked ureter (from dislodged stent) Possible liver failure (hyperbilirubinemia & elevated LFT's) History of Present Illness History of Present Illness Sitting up in chair next to bed. Talkative. When told that he could possibly go home tomorrow, was very content. Vitals Vitals Vital Signs Date Time Temp Pulse Resp B/P (MAP) Pulse Ox O2 Delivery O2 Flow Rate FiO2 06/15/17 11:27 97.8 68 18 119/71 (87) 97 Room Air 97.8 Physical Exam General: Alert, Oriented X3, Cooperative, No acute distress Heart: Regular rate, Normal S1, Normal S2 Lungs: Clear, Other (No acute respiratory distress noted) Abdomen: Normal bowel sounds, Soft, No tenderness Extremities: No clubbing, No cyanosis Skin: No rashes, No breakdown, No significant lesion Labs LABS Laboratory Tests Test 06/15/17 03:45 White Blood Count 4.5 x10^3/uL (4.0-11.0) Red Blood Count 3.42 x10^6/uL (4.30-5.70) Hemoglobin 9.8 g/dL (13.0-17.5) Hematocrit 30.1 % (39.0-53.0) Mean Corpuscular Volume 88 fL (79-100) Mean Corpuscular Hemoglobin 29 pg (25-35) Mean Corpuscular Hemoglobin Concent 33 g/dL (31-37) Red Cell Distribution Width 15.4 % (11.5-14.5) Platelet Count 219 x10^3/uL (140-400) Neutrophils (%) (Auto) 73 % (31-73) Lymphocytes (%) (Auto) 15 % (24-48) Monocytes (%) (Auto) 10 % (0-9) Eosinophils (%) (Auto) 1 % (0-3) Basophils (%) (Auto) 1 % (0-3) Neutrophils # (Auto) 3.3 x10^3uL (1.8-7.7) Lymphocytes # (Auto) 0.6 x10^3/uL (1.0-4.8) Monocytes # (Auto) 0.5 x10^3/uL (0.0-1.1) Eosinophils # (Auto) 0.0 x10^3/uL (0.0-0.7) Basophils # (Auto) 0.0 x10^3/uL (0.0-0.2) Prothrombin Time 14.1 SEC (11.7-14.0) Prothromb Time International Ratio 1.2 (0.8-1.1) Sodium Level 140 mmol/L (136-145) Potassium Level 5.3 mmol/L (3.5-5.1) Chloride Level 109 mmol/L (98-107) Carbon Dioxide Level 21 mmol/L (21-32) Anion Gap 10 (6-14) Blood Urea Nitrogen 44 mg/dL (8-26) Creatinine 3.7 mg/dL (0.7-1.3) Estimated GFR (Cockcroft-Gault) 19.4 Glucose Level 110 mg/dL (70-99) Calcium Level 8.3 mg/dL (8.5-10.1) Review of Systems Review of Systems 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 ARTI on CKD: continue to monitor Cr levels. Discussed treatment plan w/ Dr. Reed 2. Prostate CA: monitor PSA levels. Consult heme ([facility]) 3. Recent kidney stent placement, [facility]: check if dislodged 5. Anemia of CKD: monitor 6. Hyperbilirubinemia: consult GI ([place]) 7. Liver failure: monitor elevated LFT's, bilirubin. Measure INR Consult palliative care for long-term goals of conservative treatment care Problems: Comment Review of Relevant I have reviewed the following items percy (where applicable) has been applied. Labs Laboratory Tests Test 06/13/17 12:35 06/14/17 04:14 06/15/17 03:45 Urine Collection Type Unknown Urine Color [place] Urine Clarity Cloudy Urine pH 5.5 Urine Specific [place] 1.015 Urine Protein 30 mg/dL (NEG-TRACE) Urine Glucose (UA) Negative mg/dL (NEG) Urine Ketones (Stick) Negative mg/dL (NEG) Urine Blood Large (NEG) Urine Nitrite Negative (NEG) Urine Bilirubin Small (NEG) Urine Urobilinogen Dipstick 1.0 mg/dL (0.2 mg/dL) Urine Leukocyte Esterase Large (NEG) Urine RBC 20-40 /HPF (0-2) Urine WBC 1-4 /HPF (0-4) Urine Squamous Epithelial Cells Occ /LPF Urine Amorphous Sediment Present /HPF Urine Bacteria Few /HPF (0-FEW) Urine Opiates Screen Pos (NEG) Urine Methadone Screen Neg (NEG) Urine Barbiturates Neg (NEG) Urine Phencyclidine Screen Neg (NEG) Urine Amphetamine/Methamphetamine Neg (NEG) Urine Benzodiazepines Screen Neg (NEG) Urine Cocaine Screen Neg (NEG) Urine Cannabinoids Screen Neg (NEG) Urine Ethyl Alcohol Neg (NEG) Sodium Level 140 mmol/L (136-145) 140 mmol/L (136-145) Potassium Level 5.1 mmol/L (3.5-5.1) 5.3 mmol/L (3.5-5.1) Chloride Level 106 mmol/L (98-107) 109 mmol/L (98-107) Carbon Dioxide Level 19 mmol/L (21-32) 21 mmol/L (21-32) Anion Gap 15 (6-14) 10 (6-14) Blood Urea Nitrogen 46 mg/dL (8-26) 44 mg/dL (8-26) Creatinine 3.7 mg/dL (0.7-1.3) 3.7 mg/dL (0.7-1.3) Estimated GFR (Cockcroft-Gault) 19.4 19.4 Glucose Level 117 mg/dL (70-99) 110 mg/dL (70-99) Calcium Level 9.1 mg/dL (8.5-10.1) 8.3 mg/dL (8.5-10.1) Prostate Specific Antigen 70.62 ng/mL (0.00-4.00) White Blood Count 4.5 x10^3/uL (4.0-11.0) Red Blood Count 3.42 x10^6/uL (4.30-5.70) Hemoglobin 9.8 g/dL (13.0-17.5) Hematocrit 30.1 % (39.0-53.0) Mean Corpuscular Volume 88 fL (79-100) Mean Corpuscular Hemoglobin 29 pg (25-35) Mean Corpuscular Hemoglobin Concent 33 g/dL (31-37) Red Cell Distribution Width 15.4 % (11.5-14.5) Platelet Count 219 x10^3/uL (140-400) Neutrophils (%) (Auto) 73 % (31-73) Lymphocytes (%) (Auto) 15 % (24-48) Monocytes (%) (Auto) 10 % (0-9) Eosinophils (%) (Auto) 1 % (0-3) Basophils (%) (Auto) 1 % (0-3) Neutrophils # (Auto) 3.3 x10^3uL (1.8-7.7) Lymphocytes # (Auto) 0.6 x10^3/uL (1.0-4.8) Monocytes # (Auto) 0.5 x10^3/uL (0.0-1.1) Eosinophils # (Auto) 0.0 x10^3/uL (0.0-0.7) Basophils # (Auto) 0.0 x10^3/uL (0.0-0.2) Prothrombin Time 14.1 SEC (11.7-14.0) Prothromb Time International Ratio 1.2 (0.8-1.1) Laboratory Tests Test 06/15/17 03:45 White Blood Count 4.5 x10^3/uL (4.0-11.0) Red Blood Count 3.42 x10^6/uL (4.30-5.70) Hemoglobin 9.8 g/dL (13.0-17.5) Hematocrit 30.1 % (39.0-53.0) Mean Corpuscular Volume 88 fL (79-100) Mean Corpuscular Hemoglobin 29 pg (25-35) Mean Corpuscular Hemoglobin Concent 33 g/dL (31-37) Red Cell Distribution Width 15.4 % (11.5-14.5) Platelet Count 219 x10^3/uL (140-400) Neutrophils (%) (Auto) 73 % (31-73) Lymphocytes (%) (Auto) 15 % (24-48) Monocytes (%) (Auto) 10 % (0-9) Eosinophils (%) (Auto) 1 % (0-3) Basophils (%) (Auto) 1 % (0-3) Neutrophils # (Auto) 3.3 x10^3uL (1.8-7.7) Lymphocytes # (Auto) 0.6 x10^3/uL (1.0-4.8) Monocytes # (Auto) 0.5 x10^3/uL (0.0-1.1) Eosinophils # (Auto) 0.0 x10^3/uL (0.0-0.7) Basophils # (Auto) 0.0 x10^3/uL (0.0-0.2) Prothrombin Time 14.1 SEC (11.7-14.0) Prothromb Time International Ratio 1.2 (0.8-1.1) Sodium Level 140 mmol/L (136-145) Potassium Level 5.3 mmol/L (3.5-5.1) Chloride Level 109 mmol/L (98-107) Carbon Dioxide Level 21 mmol/L (21-32) Anion Gap 10 (6-14) Blood Urea Nitrogen 44 mg/dL (8-26) Creatinine 3.7 mg/dL (0.7-1.3) Estimated GFR (Cockcroft-Gault) 19.4 Glucose Level 110 mg/dL (70-99) Calcium Level 8.3 mg/dL (8.5-10.1) Medications Current Medications Ondansetron HCl (Zofran) 4 mg PRN Q6HRS PRN IV NAUSEA/VOMITING (1st CHOICE) Last administered on 06/13/17 16:49; Start 06/13/17 at 14:45 Prochlorperazine Edisylate (Compazine) 10 mg PRN Q6HRS PRN IV NAUSEA/VOMITING ( 2ND CHOICE); Start 06/13/17 at 14:45 Prochlorperazine (Compazine) 25 mg PRN Q12HR PRN AR NAUSEA/VOMITING; Start at 14:45 Oxycodone HCl (Roxicodone) 5 mg PRN Q3HRS PRN PO BREAKTHROUGH PAIN Last administered on 06/15/17 11:24; Start 06/13/17 at 14:45 Morphine Sulfate 1 mg PRN Q1HR PRN IV PAIN; Start 06/13/17 at 14:45 Acetaminophen (Tylenol) 650 mg PRN Q6HRS PRN PO Headaches, Temp > 101.5F; Start 06/13/17 at 14:45; Stop 06/14/17 at 11:58; Status DC Docusate Sodium (Colace) 100 mg BID PO Last administered on 06/15/17 08:34; Start 06/13/17 at 21:00 Magnesium Hydroxide (Milk Of Magnesia) 2,400 mg PRN Q12HR PRN PO CONSTIPATION; Start 06/13/17 at 14:45 Bisacodyl (Dulcolax Supp) 10 mg PRN DAILY PRN AR CONSTIPATION; Start 06/13/17 at 14:45 Heparin Sodium (Porcine) (Heparin Sq) 5,000 unit Q12HR SQ Last administered on 06/15/17 08:39; Start 06/13/17 at 21:00 Clonidine HCl (Catapres) 0.1 mg BID PO Last administered on 06/15/17 08:33; Start 06/13/17 at 21:00 Latanoprost (Xalatan) 1 drop HS OU Last administered on 06/14/17 20:31; Start 06/13/17 at 21:00 Ondansetron HCl (Zofran Odt) 4 mg PRN Q8HRS PRN PO NAUSEA/VOMITING Last administered on 06/14/17 17:26; Start 06/13/17 at 14:45 Prednisone (Prednisone) 5 mg BID PO Last administered on 06/15/17 08:34; Start 06/13/17 at 21:00 Terazosin HCl (Hytrin) 5 mg HS PO Last administered on 06/14/17 20:31; Start 06/13/17 at 21:00 Sodium Chloride 1,000 ml @ 100 mls/hr Q10H IV Last administered on 06/15/17 08:32; Start 06/13/17 at 14:45 Active Scripts Active Zofran Odt (Ondansetron) 4 Mg Tab.rapdis 4 Mg PO Q8HRS PRN Reported Xalatan (Latanoprost) 2.5 Ml Drops 1 Drop OP HS Clonidine Hcl 0.1 Mg Tablet 0.1 Mg PO BID Prednisone 5 Mg Tablet 5 Mg PO BID Terazosin Hcl 5 Mg Capsule 5 Mg PO HS Vitals/I & O Vital Sign - Last 24 Hours 06/14/17 06/14/17 06/14/17 06/14/17 14:50 19:00 20:00 20:31 Temp 97.8 97.9 97.8 97.9 Pulse 77 75 75 Resp 18 19 B/P (MAP) 110/69 (83) 133/70 (91) 133/70 Pulse Ox 99 99 O2 Delivery Room Air Room Air Room Air 06/14/17 06/14/17 06/15/17 06/15/17 20:31 22:53 03:00 07:00 Temp 98.2 98.4 95.9 98.2 98.4 95.9 Pulse 75 81 69 76 Resp 18 20 18 B/P (MAP) 133/70 137/79 (98) 113/64 (80) 122/72 (89) Pulse Ox 98 99 98 O2 Delivery Room Air Room Air Room Air 06/15/17 06/15/17 06/15/17 06/15/17 07:45 08:33 11:24 11:27 Temp 97.8 97.8 Pulse 76 68 Resp 18 B/P (MAP) 122/72 119/71 (87) Pulse Ox 97 O2 Delivery Room Air Room Air Room Air Intake and Output 06/14/17 06/14/17 06/15/17 15:00 23:00 07:00 Intake Total 240 ml 620 ml Output Total 300 ml 300 ml 325 ml Balance -60 ml 320 ml -325 ml ENEDINA PARSON III DO Jun 15, 2017 11:54
[2017-06-15 14:55] VITALS: BP 114/64
--- NOTE | 2017-06-15 14:55 | PDOC2 ---
PALLIATIVE CARE Palliative Care Note Palliative Care Consult requested by Dr. May to address goals of care. Diagnosis; Prostate cancer with mets to bone and liver. lymphadenopathy. Patient has failed previous chemotherapy and declines further treatment. Renal Failure-- pervious sent placement; Anemia due to malignancy; Patient alert. Sitting up in chair Understand medical condition. States he lives by himself and wants to go home. He has 2 daughters who are supportive. Discussed AD. He would like assistance with completing document. Brief discussion about Hospice Support. He would like daughter involved in conversation He understands that there is no cure for his cancer and wants to be kept comfortable. Attempted to reach Jeffrey -daughter to arrange family meeting. Message to return call Discussed Code Status; States he would not want resuscitation but wants his daughters to be part of conversation. Will try to meet at 10 am tomorrow. RANJAN JESUS Jun 15, 2017 14:55
[2017-06-15 19:00] VITALS: BP 119/65
[2017-06-15] MEDS: TERAZOSIN 5 MG CAPSULE. PO SCH (20:07)
[2017-06-15] MEDS: LATANOPROST 0.005% OPHTH SOLUTION 2.5ML BOTTLE. OU SCH (20:08)
[2017-06-15 22:55] VITALS: BP 103/61
[2017-06-16] MEDS: IV NORMAL SALINE 1000ML BAG 1,000 ML IV SCH (02:45)
[2017-06-16 05:26] LABS: BASO % 1 % (0-3); EOS % 1 % (0-3); HEMATOCRIT 30.3 % (39.0-53.0); LYMPH # 0.9 x10^3/uL (1.0-4.8); LYMPH % 19 % (24-48); MEAN CORPUSCULAR HEMOGLOBIN 29 pg (25-35); MEAN CORPUSCULAR HGB CONC 33 g/dL (31-37); MEAN CORPUSCULAR VOLUME 87 fL (79-100); MONO % 12 % (0-9); NEUT % 67 % (31-73); PLATELET COUNT 238 x10^3/uL (140-400); RED BLOOD COUNT 3.49 x10^6/uL (4.30-5.70); RED CELL DISTRIBUTION WIDTH 15.8 % (11.5-14.5); WHITE BLOOD COUNT 4.5 x10^3/uL (4.0-11.0)
[2017-06-16 05:34] LABS: CALCIUM 8.2 mg/dL (8.5-10.1); CREATININE 3.3 mg/dL (0.7-1.3); GFR 22.1; POTASSIUM 4.8 mmol/L (3.5-5.1)
[2017-06-16 07:00] VITALS: BP 114/66
[2017-06-16] MEDS: DOCUSATE SODIUM 100 MG CAPSULE. PO SCH (08:26)
[2017-06-16] MEDS: predniSONE 5 MG TABLET PO SCH (08:27)
[2017-06-16] MEDS: HEPARIN PF for SUB-Q USE 5,000 UNIT/0.5 ML VIAL. SQ SCH (08:27)
[2017-06-16] MEDS: cloNIDine HCL 0.1 MG TABLET PO SCH (08:27)
--- NOTE | 2017-06-16 10:35 | PDOC ---
PROGRESS NOTES Subjective Subjective c/c - f/u of Metastatic prostate cancer ROS - no back pain Objective Objective Vital Signs Date Time Temp Pulse Resp B/P (MAP) Pulse Ox O2 Delivery O2 Flow Rate FiO2 06/16/17 08:27 69 114/66 06/16/17 08:00 Room Air 06/16/17 07:00 97.5 18 98 97.5 Intake and Output 06/16/17 06:59 Intake Total 360 ml Output Total 800 ml Balance -440 ml Intake Oral 360 ml Output Urine Total 800 ml # Voids 4 # Bowel Movements 1 Physical Exam Heart: Normal S1, Normal S2 General: Alert, Oriented X3 Lungs: Clear to auscultation Neuro: Normal speech Psych/Mental Status: Mental status NL Assessment Assessment IMPRESSION AND PLAN: 1. Metastatic prostate cancer with evidence of bone metastasis, lymphadenopathy and progressive liver metastasis noted on PET scan in February 2017. The patient has failed previous therapies with Zytiga and prednisone, Xtandi which he did not tolerate, he could not afford hydrocortisone and ketoconazole. He has been evaluated by Dr. Childers and the patient declined chemotherapy. Hence, he is on Lupron and denosumab. I reviewed in detail with the patient regarding the recent PET scan findings. Progressive liver disease could be related to adenocarcinoma of the prostate versus small cell transformation. His PSA is only 70 despite progressive disease in the liver. Hence, I offered biopsy of the liver to evaluate for small cell transformation. He mentions that even if he has a transformation to a small cell histology, he would not want to pursue any type of chemotherapy. Hence, it was decided not to pursue with a biopsy. He wishes to focus on quality of life and supportive care with Lupron and denosumab. He does not want to pursue with chemotherapy. All his questions were answered. Appreciate palliative care consultation. 2. Renal failure. Ultrasound does not reveal any evidence of hydronephrosis. He does have a stent placed recently. Appreciate Nephrology consultation. I d/ w Dr Reed. 3. Anemia due to malignancy. Continue to monitor. 4. Bone metastasis. He gets denosumab. He will continue this as outpatient. Please call if needed. Comment Review of Relevant I have reviewed the following items percy (where applicable) has been applied. Labs Laboratory Tests Test 06/15/17 03:45 06/16/17 04:10 White Blood Count 4.5 x10^3/uL (4.0-11.0) 4.5 x10^3/uL (4.0-11.0) Red Blood Count 3.42 x10^6/uL (4.30-5.70) 3.49 x10^6/uL (4.30-5.70) Hemoglobin 9.8 g/dL (13.0-17.5) 10.0 g/dL (13.0-17.5) Hematocrit 30.1 % (39.0-53.0) 30.3 % (39.0-53.0) Mean Corpuscular Volume 88 fL (79-100) 87 fL (79-100) Mean Corpuscular Hemoglobin 29 pg (25-35) 29 pg (25-35) Mean Corpuscular Hemoglobin Concent 33 g/dL (31-37) 33 g/dL (31-37) Red Cell Distribution Width 15.4 % (11.5-14.5) 15.8 % (11.5-14.5) Platelet Count 219 x10^3/uL (140-400) 238 x10^3/uL (140-400) Neutrophils (%) (Auto) 73 % (31-73) 67 % (31-73) Lymphocytes (%) (Auto) 15 % (24-48) 19 % (24-48) Monocytes (%) (Auto) 10 % (0-9) 12 % (0-9) Eosinophils (%) (Auto) 1 % (0-3) 1 % (0-3) Basophils (%) (Auto) 1 % (0-3) 1 % (0-3) Neutrophils # (Auto) 3.3 x10^3uL (1.8-7.7) 3.0 x10^3uL (1.8-7.7) Lymphocytes # (Auto) 0.6 x10^3/uL (1.0-4.8) 0.9 x10^3/uL (1.0-4.8) Monocytes # (Auto) 0.5 x10^3/uL (0.0-1.1) 0.6 x10^3/uL (0.0-1.1) Eosinophils # (Auto) 0.0 x10^3/uL (0.0-0.7) 0.0 x10^3/uL (0.0-0.7) Basophils # (Auto) 0.0 x10^3/uL (0.0-0.2) 0.0 x10^3/uL (0.0-0.2) Prothrombin Time 14.1 SEC (11.7-14.0) Prothromb Time International Ratio 1.2 (0.8-1.1) Sodium Level 140 mmol/L (136-145) 142 mmol/L (136-145) Potassium Level 5.3 mmol/L (3.5-5.1) 4.8 mmol/L (3.5-5.1) Chloride Level 109 mmol/L (98-107) 111 mmol/L (98-107) Carbon Dioxide Level 21 mmol/L (21-32) 20 mmol/L (21-32) Anion Gap 10 (6-14) 11 (6-14) Blood Urea Nitrogen 44 mg/dL (8-26) 39 mg/dL (8-26) Creatinine 3.7 mg/dL (0.7-1.3) 3.3 mg/dL (0.7-1.3) Estimated GFR (Cockcroft-Gault) 19.4 22.1 Glucose Level 110 mg/dL (70-99) 102 mg/dL (70-99) Calcium Level 8.3 mg/dL (8.5-10.1) 8.2 mg/dL (8.5-10.1) Laboratory Tests Test 06/16/17 04:10 White Blood Count 4.5 x10^3/uL (4.0-11.0) Red Blood Count 3.49 x10^6/uL (4.30-5.70) Hemoglobin 10.0 g/dL (13.0-17.5) Hematocrit 30.3 % (39.0-53.0) Mean Corpuscular Volume 87 fL (79-100) Mean Corpuscular Hemoglobin 29 pg (25-35) Mean Corpuscular Hemoglobin Concent 33 g/dL (31-37) Red Cell Distribution Width 15.8 % (11.5-14.5) Platelet Count 238 x10^3/uL (140-400) Neutrophils (%) (Auto) 67 % (31-73) Lymphocytes (%) (Auto) 19 % (24-48) Monocytes (%) (Auto) 12 % (0-9) Eosinophils (%) (Auto) 1 % (0-3) Basophils (%) (Auto) 1 % (0-3) Neutrophils # (Auto) 3.0 x10^3uL (1.8-7.7) Lymphocytes # (Auto) 0.9 x10^3/uL (1.0-4.8) Monocytes # (Auto) 0.6 x10^3/uL (0.0-1.1) Eosinophils # (Auto) 0.0 x10^3/uL (0.0-0.7) Basophils # (Auto) 0.0 x10^3/uL (0.0-0.2) Sodium Level 142 mmol/L (136-145) Potassium Level 4.8 mmol/L (3.5-5.1) Chloride Level 111 mmol/L (98-107) Carbon Dioxide Level 20 mmol/L (21-32) Anion Gap 11 (6-14) Blood Urea Nitrogen 39 mg/dL (8-26) Creatinine 3.3 mg/dL (0.7-1.3) Estimated GFR (Cockcroft-Gault) 22.1 Glucose Level 102 mg/dL (70-99) Calcium Level 8.2 mg/dL (8.5-10.1) Microbiology 06/13/17 Urine Culture - Final, Complete 06/13/17 Urine Culture Result 1 (CAMILA) - Final, Complete Medications Current Medications Ondansetron HCl (Zofran) 4 mg PRN Q6HRS PRN IV NAUSEA/VOMITING (1st CHOICE) Last administered on 06/13/17 16:49; Start 06/13/17 at 14:45 Prochlorperazine Edisylate (Compazine) 10 mg PRN Q6HRS PRN IV NAUSEA/VOMITING ( 2ND CHOICE); Start 06/13/17 at 14:45 Prochlorperazine (Compazine) 25 mg PRN Q12HR PRN SC NAUSEA/VOMITING; Start at 14:45 Oxycodone HCl (Roxicodone) 5 mg PRN Q3HRS PRN PO BREAKTHROUGH PAIN Last administered on 06/15/17 11:24; Start 06/13/17 at 14:45 Morphine Sulfate 1 mg PRN Q1HR PRN IV PAIN; Start 06/13/17 at 14:45 Acetaminophen (Tylenol) 650 mg PRN Q6HRS PRN PO Headaches, Temp > 101.5F; Start 06/13/17 at 14:45; Stop 06/14/17 at 11:58; Status DC Docusate Sodium (Colace) 100 mg BID PO Last administered on 06/16/17 08:26; Start 06/13/17 at 21:00 Magnesium Hydroxide (Milk Of Magnesia) 2,400 mg PRN Q12HR PRN PO CONSTIPATION; Start 06/13/17 at 14:45 Bisacodyl (Dulcolax Supp) 10 mg PRN DAILY PRN [place] CONSTIPATION; Start 06/13/17 at 14:45 Heparin Sodium (Porcine) (Heparin Sq) 5,000 unit Q12HR SQ Last administered on 06/16/17 08:27; Start 06/13/17 at 21:00 Clonidine HCl (Catapres) 0.1 mg BID PO Last administered on 06/16/17 08:27; Start 06/13/17 at 21:00 Latanoprost (Xalatan) 1 drop HS OU Last administered on 06/15/17 20:08; Start 06/13/17 at 21:00 Ondansetron HCl (Zofran Odt) 4 mg PRN Q8HRS PRN PO NAUSEA/VOMITING Last administered on 06/14/17 17:26; Start 06/13/17 at 14:45 Prednisone (Prednisone) 5 mg BID PO Last administered on 06/16/17 08:27; Start 06/13/17 at 21:00 Terazosin HCl (Hytrin) 5 mg HS PO Last administered on 06/15/17 20:07; Start 06/13/17 at 21:00 Sodium Chloride 1,000 ml @ 100 mls/hr Q10H IV Last administered on 06/16/17 02:45; Start 06/13/17 at 14:45 Active Scripts Active Zofran Odt (Ondansetron) 4 Mg Tab.rapdis 4 Mg PO Q8HRS PRN Reported Xalatan (Latanoprost) 2.5 Ml Drops 1 Drop OP HS Clonidine Hcl 0.1 Mg Tablet 0.1 Mg PO BID Prednisone 5 Mg Tablet 5 Mg PO BID Terazosin Hcl 5 Mg Capsule 5 Mg PO HS Vitals/I & O Vital Sign - Last 24 Hours 06/15/17 06/15/17 06/15/17 06/15/17 11:24 11:27 12:30 14:55 Temp 97.8 97.7 97.8 97.7 Pulse 68 68 Resp 18 18 B/P (MAP) 119/71 (87) 114/64 (81) Pulse Ox 97 97 O2 Delivery Room Air Room Air Room Air Room Air 06/15/17 06/15/17 06/15/17 06/15/17 19:00 20:00 20:03 20:07 Temp 98.1 98.1 Pulse 74 68 68 Resp 18 B/P (MAP) 119/65 (83) 114/64 114/64 Pulse Ox 97 O2 Delivery Room Air Room Air 06/15/17 06/16/17 06/16/17 06/16/17 22:55 07:00 08:00 08:27 Temp 98.5 97.5 98.5 97.5 Pulse 67 69 69 Resp 16 18 B/P (MAP) 103/61 (75) 114/66 (82) 114/66 Pulse Ox 95 98 O2 Delivery Room Air Room Air Room Air Intake and Output 06/15/17 06/15/17 06/16/17 14:59 22:59 06:59 Intake Total 120 ml 240 ml Output Total 100 ml 700 ml Balance 20 ml -460 ml DARLENE SMITH MD Jun 16, 2017 10:35
[2017-06-16 11:00] VITALS: BP 126/72
[2017-06-16] MEDS: ONDANSETRON PF 4 MG/2 ML VIAL. IV PRN (11:42)
--- NOTE | 2017-06-16 11:43 | PDOC ---
Renal-Progress Notes Subjective Notes Notes FEELS WELL History of Present Illness Hx of present illness STABLE Vitals Vitals Vital Signs Date Time Temp Pulse Resp B/P (MAP) Pulse Ox O2 Delivery O2 Flow Rate FiO2 06/16/17 11:00 96.6 70 18 126/72 (90) 98 Room Air 96.6 Weight Weight [ ] I.O. Intake and Output Intake and Output 06/16/17 07:00 Intake Total 360 ml Output Total 800 ml Balance -440 ml Intake Oral 360 ml Output Urine Total 800 ml # Voids 4 # Bowel Movements 1 Labs Labs Laboratory Tests Test 06/16/17 04:10 White Blood Count 4.5 x10^3/uL (4.0-11.0) Red Blood Count 3.49 x10^6/uL (4.30-5.70) Hemoglobin 10.0 g/dL (13.0-17.5) Hematocrit 30.3 % (39.0-53.0) Mean Corpuscular Volume 87 fL (79-100) Mean Corpuscular Hemoglobin 29 pg (25-35) Mean Corpuscular Hemoglobin Concent 33 g/dL (31-37) Red Cell Distribution Width 15.8 % (11.5-14.5) Platelet Count 238 x10^3/uL (140-400) Neutrophils (%) (Auto) 67 % (31-73) Lymphocytes (%) (Auto) 19 % (24-48) Monocytes (%) (Auto) 12 % (0-9) Eosinophils (%) (Auto) 1 % (0-3) Basophils (%) (Auto) 1 % (0-3) Neutrophils # (Auto) 3.0 x10^3uL (1.8-7.7) Lymphocytes # (Auto) 0.9 x10^3/uL (1.0-4.8) Monocytes # (Auto) 0.6 x10^3/uL (0.0-1.1) Eosinophils # (Auto) 0.0 x10^3/uL (0.0-0.7) Basophils # (Auto) 0.0 x10^3/uL (0.0-0.2) Sodium Level 142 mmol/L (136-145) Potassium Level 4.8 mmol/L (3.5-5.1) Chloride Level 111 mmol/L (98-107) Carbon Dioxide Level 20 mmol/L (21-32) Anion Gap 11 (6-14) Blood Urea Nitrogen 39 mg/dL (8-26) Creatinine 3.3 mg/dL (0.7-1.3) Estimated GFR (Cockcroft-Gault) 22.1 Glucose Level 102 mg/dL (70-99) Calcium Level 8.2 mg/dL (8.5-10.1) Micro Micro Microbiology 06/13/17 Urine Culture - Final, Complete 06/13/17 Urine Culture Result 1 (CAMILA) - Final, Complete Review of Systems Constitutional: yes: weakness, alert, oriented Ears/Nose/Throat: Yes: no symptom reported Eyes: Yes: no symptom reported Pulmonary: Yes no symptom reported Gastrointestional: Yes: no symptom reported Musculoskeletal: Yes: no symptom reported Skin: Yes no symptom reported Psychiatric/Neurological: Yes: no symptom reported Physical Exam General Appearance: no apparent distress Respiratory: bilateral CTA Heart: S1S2, RRR Abdomen: soft, bowel sounds present Genitourinary: bladder flat Extremities: pulses present Neurology: alert, oriented Assessment Assessment IMP ARTI-CR DOWN TO 3.3 CKD STAGE 3 WITH CR OF 2.0 LIVER FAILURE MET PROSTATE CANCER ANEMIA HX OF LEFT HYDRO-STENT PLACED COUPLE MONTHS AGO STENT MIGRATION INTO THE BLADDER-BUT HYDRO IS DECOMPRESSED PLAN ENC PO FLUIDS PT HAS DECIDED TO GO WITH CONSERVATIVE TX D/W PT AND DAUGHTER D/C PLANS NOTED WILL SIGN OFF JOLIE KEARNS MD Jun 16, 2017 11:43
--- NOTE | 2017-06-16 11:48 | PDOC ---
PROGRESS NOTES Chief Complaint Chief Complaint Sent by [facility] for abnormal labs Metastatic prostate CA Possible blocked ureter (from dislodged stent) Possible liver failure (hyperbilirubinemia & elevated LFT's) History of Present Illness History of Present Illness Pt was sitting in his chair next to bed w/ daughter in room. He was talkative and content to be heading home. Vitals Vitals Vital Signs Date Time Temp Pulse Resp B/P (MAP) Pulse Ox O2 Delivery O2 Flow Rate FiO2 06/16/17 11:00 96.6 70 18 126/72 (90) 98 Room Air 96.6 Physical Exam General: Alert, Oriented X3 Heart: Normal S1, Normal S2 Lungs: Clear, Other (No acute respiratory distress) Abdomen: Normal bowel sounds, Soft, No tenderness Extremities: No clubbing, No cyanosis Skin: No rashes, No breakdown, No significant lesion Labs LABS Laboratory Tests Test 06/16/17 04:10 White Blood Count 4.5 x10^3/uL (4.0-11.0) Red Blood Count 3.49 x10^6/uL (4.30-5.70) Hemoglobin 10.0 g/dL (13.0-17.5) Hematocrit 30.3 % (39.0-53.0) Mean Corpuscular Volume 87 fL (79-100) Mean Corpuscular Hemoglobin 29 pg (25-35) Mean Corpuscular Hemoglobin Concent 33 g/dL (31-37) Red Cell Distribution Width 15.8 % (11.5-14.5) Platelet Count 238 x10^3/uL (140-400) Neutrophils (%) (Auto) 67 % (31-73) Lymphocytes (%) (Auto) 19 % (24-48) Monocytes (%) (Auto) 12 % (0-9) Eosinophils (%) (Auto) 1 % (0-3) Basophils (%) (Auto) 1 % (0-3) Neutrophils # (Auto) 3.0 x10^3uL (1.8-7.7) Lymphocytes # (Auto) 0.9 x10^3/uL (1.0-4.8) Monocytes # (Auto) 0.6 x10^3/uL (0.0-1.1) Eosinophils # (Auto) 0.0 x10^3/uL (0.0-0.7) Basophils # (Auto) 0.0 x10^3/uL (0.0-0.2) Sodium Level 142 mmol/L (136-145) Potassium Level 4.8 mmol/L (3.5-5.1) Chloride Level 111 mmol/L (98-107) Carbon Dioxide Level 20 mmol/L (21-32) Anion Gap 11 (6-14) Blood Urea Nitrogen 39 mg/dL (8-26) Creatinine 3.3 mg/dL (0.7-1.3) Estimated GFR (Cockcroft-Gault) 22.1 Glucose Level 102 mg/dL (70-99) Calcium Level 8.2 mg/dL (8.5-10.1) Review of Systems Review of Systems C/o hunger Pt demeanor improved b/c content to be going home today w/ daughter Assessment and Plan Assessmemt and Plan 1. ARTI on CKD: continue to monitor Cr levels. Discussed treatment plan w/ Dr. Reed 2. Prostate CA: monitor PSA levels. Consulted heme 3. Recent kidney stent placement, [facility]: dislodged 5. Anemia of CKD: monitor 6. Hyperbilirubinemia: consulted GI 7. Liver failure: monitor elevated LFT's, bilirubin. Palliative care consulted. D/c home w/ daughter. Pt wants conservative tx. Very content to be going home Problems: Comment Review of Relevant I have reviewed the following items percy (where applicable) has been applied. Labs Laboratory Tests Test 06/15/17 03:45 06/16/17 04:10 White Blood Count 4.5 x10^3/uL (4.0-11.0) 4.5 x10^3/uL (4.0-11.0) Red Blood Count 3.42 x10^6/uL (4.30-5.70) 3.49 x10^6/uL (4.30-5.70) Hemoglobin 9.8 g/dL (13.0-17.5) 10.0 g/dL (13.0-17.5) Hematocrit 30.1 % (39.0-53.0) 30.3 % (39.0-53.0) Mean Corpuscular Volume 88 fL (79-100) 87 fL (79-100) Mean Corpuscular Hemoglobin 29 pg (25-35) 29 pg (25-35) Mean Corpuscular Hemoglobin Concent 33 g/dL (31-37) 33 g/dL (31-37) Red Cell Distribution Width 15.4 % (11.5-14.5) 15.8 % (11.5-14.5) Platelet Count 219 x10^3/uL (140-400) 238 x10^3/uL (140-400) Neutrophils (%) (Auto) 73 % (31-73) 67 % (31-73) Lymphocytes (%) (Auto) 15 % (24-48) 19 % (24-48) Monocytes (%) (Auto) 10 % (0-9) 12 % (0-9) Eosinophils (%) (Auto) 1 % (0-3) 1 % (0-3) Basophils (%) (Auto) 1 % (0-3) 1 % (0-3) Neutrophils # (Auto) 3.3 x10^3uL (1.8-7.7) 3.0 x10^3uL (1.8-7.7) Lymphocytes # (Auto) 0.6 x10^3/uL (1.0-4.8) 0.9 x10^3/uL (1.0-4.8) Monocytes # (Auto) 0.5 x10^3/uL (0.0-1.1) 0.6 x10^3/uL (0.0-1.1) Eosinophils # (Auto) 0.0 x10^3/uL (0.0-0.7) 0.0 x10^3/uL (0.0-0.7) Basophils # (Auto) 0.0 x10^3/uL (0.0-0.2) 0.0 x10^3/uL (0.0-0.2) Prothrombin Time 14.1 SEC (11.7-14.0) Prothromb Time International Ratio 1.2 (0.8-1.1) Sodium Level 140 mmol/L (136-145) 142 mmol/L (136-145) Potassium Level 5.3 mmol/L (3.5-5.1) 4.8 mmol/L (3.5-5.1) Chloride Level 109 mmol/L (98-107) 111 mmol/L (98-107) Carbon Dioxide Level 21 mmol/L (21-32) 20 mmol/L (21-32) Anion Gap 10 (6-14) 11 (6-14) Blood Urea Nitrogen 44 mg/dL (8-26) 39 mg/dL (8-26) Creatinine 3.7 mg/dL (0.7-1.3) 3.3 mg/dL (0.7-1.3) Estimated GFR (Cockcroft-Gault) 19.4 22.1 Glucose Level 110 mg/dL (70-99) 102 mg/dL (70-99) Calcium Level 8.3 mg/dL (8.5-10.1) 8.2 mg/dL (8.5-10.1) Laboratory Tests Test 06/16/17 04:10 White Blood Count 4.5 x10^3/uL (4.0-11.0) Red Blood Count 3.49 x10^6/uL (4.30-5.70) Hemoglobin 10.0 g/dL (13.0-17.5) Hematocrit 30.3 % (39.0-53.0) Mean Corpuscular Volume 87 fL (79-100) Mean Corpuscular Hemoglobin 29 pg (25-35) Mean Corpuscular Hemoglobin Concent 33 g/dL (31-37) Red Cell Distribution Width 15.8 % (11.5-14.5) Platelet Count 238 x10^3/uL (140-400) Neutrophils (%) (Auto) 67 % (31-73) Lymphocytes (%) (Auto) 19 % (24-48) Monocytes (%) (Auto) 12 % (0-9) Eosinophils (%) (Auto) 1 % (0-3) Basophils (%) (Auto) 1 % (0-3) Neutrophils # (Auto) 3.0 x10^3uL (1.8-7.7) Lymphocytes # (Auto) 0.9 x10^3/uL (1.0-4.8) Monocytes # (Auto) 0.6 x10^3/uL (0.0-1.1) Eosinophils # (Auto) 0.0 x10^3/uL (0.0-0.7) Basophils # (Auto) 0.0 x10^3/uL (0.0-0.2) Sodium Level 142 mmol/L (136-145) Potassium Level 4.8 mmol/L (3.5-5.1) Chloride Level 111 mmol/L (98-107) Carbon Dioxide Level 20 mmol/L (21-32) Anion Gap 11 (6-14) Blood Urea Nitrogen 39 mg/dL (8-26) Creatinine 3.3 mg/dL (0.7-1.3) Estimated GFR (Cockcroft-Gault) 22.1 Glucose Level 102 mg/dL (70-99) Calcium Level 8.2 mg/dL (8.5-10.1) Microbiology 06/13/17 Urine Culture - Final, Complete 06/13/17 Urine Culture Result 1 (CAMILA) - Final, Complete Medications Current Medications Ondansetron HCl (Zofran) 4 mg PRN Q6HRS PRN IV NAUSEA/VOMITING (1st CHOICE) Last administered on 06/16/17 11:42; Start 06/13/17 at 14:45 Prochlorperazine Edisylate (Compazine) 10 mg PRN Q6HRS PRN IV NAUSEA/VOMITING ( 2ND CHOICE); Start 06/13/17 at 14:45 Prochlorperazine (Compazine) 25 mg PRN Q12HR PRN MI NAUSEA/VOMITING; Start at 14:45 Oxycodone HCl (Roxicodone) 5 mg PRN Q3HRS PRN PO BREAKTHROUGH PAIN Last administered on 06/15/17 11:24; Start 06/13/17 at 14:45 Morphine Sulfate 1 mg PRN Q1HR PRN IV PAIN; Start 06/13/17 at 14:45 Acetaminophen (Tylenol) 650 mg PRN Q6HRS PRN PO Headaches, Temp > 101.5F; Start 06/13/17 at 14:45; Stop 06/14/17 at 11:58; Status DC Docusate Sodium (Colace) 100 mg BID PO Last administered on 06/16/17 08:26; Start 06/13/17 at 21:00 Magnesium Hydroxide (Milk Of Magnesia) 2,400 mg PRN Q12HR PRN PO CONSTIPATION; Start 06/13/17 at 14:45 Bisacodyl (Dulcolax Supp) 10 mg PRN DAILY PRN MI CONSTIPATION; Start 06/13/17 at 14:45 Heparin Sodium (Porcine) (Heparin Sq) 5,000 unit Q12HR SQ Last administered on 06/16/17 08:27; Start 06/13/17 at 21:00 Clonidine HCl (Catapres) 0.1 mg BID PO Last administered on 06/16/17 08:27; Start 06/13/17 at 21:00 Latanoprost (Xalatan) 1 drop HS OU Last administered on 06/15/17 20:08; Start 06/13/17 at 21:00 Ondansetron HCl (Zofran Odt) 4 mg PRN Q8HRS PRN PO NAUSEA/VOMITING Last administered on 06/14/17 17:26; Start 06/13/17 at 14:45 Prednisone (Prednisone) 5 mg BID PO Last administered on 06/16/17 08:27; Start 06/13/17 at 21:00 Terazosin HCl (Hytrin) 5 mg HS PO Last administered on 06/15/17 20:07; Start 06/13/17 at 21:00 Sodium Chloride 1,000 ml @ 100 mls/hr Q10H IV Last administered on 06/16/17 02:45; Start 06/13/17 at 14:45 Active Scripts Active Zofran Odt (Ondansetron) 4 Mg Tab.rapdis 4 Mg PO Q8HRS PRN Reported Xalatan (Latanoprost) 2.5 Ml Drops 1 Drop OP HS Clonidine Hcl 0.1 Mg Tablet 0.1 Mg PO BID Prednisone 5 Mg Tablet 5 Mg PO BID Terazosin Hcl 5 Mg Capsule 5 Mg PO HS Vitals/I & O Vital Sign - Last 24 Hours 06/15/17 06/15/17 06/15/17 06/15/17 12:30 14:55 19:00 20:00 Temp 97.7 98.1 97.7 98.1 Pulse 68 74 Resp 18 18 B/P (MAP) 114/64 (81) 119/65 (83) Pulse Ox 97 97 O2 Delivery Room Air Room Air Room Air Room Air 06/15/17 06/15/17 06/15/17 06/16/17 20:03 20:07 22:55 07:00 Temp 98.5 97.5 98.5 97.5 Pulse 68 68 67 69 Resp 16 18 B/P (MAP) 114/64 114/64 103/61 (75) 114/66 (82) Pulse Ox 95 98 O2 Delivery Room Air Room Air 06/16/17 06/16/17 06/16/17 08:00 08:27 11:00 Temp 96.6 96.6 Pulse 69 70 Resp 18 B/P (MAP) 114/66 126/72 (90) Pulse Ox 98 O2 Delivery Room Air Room Air Intake and Output 06/15/17 06/15/17 06/16/17 15:00 23:00 07:00 Intake Total 120 ml 240 ml Output Total 100 ml 700 ml Balance 20 ml -460 ml ENEDINA PARSON III DO Jun 16, 2017 11:48
--- NOTE | 2017-06-16 12:21 | PDOC2 ---
PALLIATIVE CARE Palliative Care Note Palliative Care Patient alert and oriented. Sitting up in chair. Anxious to go home today. Met with daughter Jeffrey. Patient has another daughter Delmi who is aware of his illness but unable to attend meeting. 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 CKD 3 with creatnine of 2.0; anemia; placement of stent at [facility] which has migrated to bladder Patient has discussed plan of care with oncology. He does not want chemotherapy. Discussed options for support when discharged. Home with hospice vs home with no other support except family. Reviewed Hospice with patient and daughter. They would like hospice support at discharge. Tremaine JAMES will assist with selection of hospice agency. Discussed Code Status: Patient requests DNR/DNI. Understands without this attempt likely he would . Outside the Hospital DNR/DNI form signed. Signed by Roney May. copy requested by daughter and given Plan: Home with Hospice when discharged. Tremaine JAMES will assist with selection of agency,. DNR/DNI Outside the Hospital form signed.. Sent original home with patient. RANJAN JESUS Jun 16, 2017 12:21
== END 2017-06-16 16:16 | disposition hospice, home (50) | DRG 698 ==
LOC: ER 10:34 → 5 SOUTH 14:00
PROVIDERS: ADMIT Internal Medicine; ATTEND Internal Medicine
DX: T83.123A Displacement of other urinary stents, initial encounter (principal); N17.0 Acute kidney failure with tubular necrosis; C78.7 Secondary malignant neoplasm of liver and intrahepatic bile duct; C79.51 Secondary malignant neoplasm of bone; E44.0 Moderate protein-calorie malnutrition; K72.90 Hepatic failure, unspecified without coma; C61 Malignant neoplasm of prostate; D63.1 Anemia in chronic kidney disease; N18.5 Chronic kidney disease, stage 5; I12.9 Hypertensive chronic kidney disease with stage 1 through stage 4 chronic kidney disease, or unspecified chronic kidney disease; D63.0 Anemia in neoplastic disease; Y84.8 Other medical procedures as the cause of abnormal reaction of the patient, or of later complication, without mention of misadventure at the time of the procedure; N28.1 Cyst of kidney, acquired; Z82.49 Family history of ischemic heart disease and other diseases of the circulatory system; Z87.442 Personal history of urinary calculi; Z92.3 Personal history of irradiation; Z68.27 Body mass index [BMI] 27.0-27.9, adult; Z51.5 Encounter for palliative care
CPT/HCPCS: 36415; 71010; 76770; 80048; 80076; 80307; 81001; 82553; 83690; 83735; 83880; 84484; 85025; 85610; 87086; 93005; G0103; J2405; J7030; J7512; Q0162; 99285-25; G0479